=== PATIENT | male | born 1960 | race Caucasian/White ===

== ENCOUNTER 2017-04-19 14:26 | Emergency (ER) | payer BC ==
[2017-04-19 14:47] VITALS: BP 145/112
[2017-04-19] MEDS ORDERED: Metoclopramide 10 MG/2 ML SDV IVPUSH ONE (15:06)
--- NOTE | 2017-04-19 15:10 | EDM.PDOC ---
<George Mendiola - Last Filed: 04/19/17 20:56> ED HPI GENERAL MEDICAL PROBLEM - General Chief Complaint: Gastrointestinal Problem Stated Complaint: DIARHEA,DEHYDRATED Time Seen by Provider: 04/19/17 15:06 - Related Data Allergies Allergy/AdvReac Type Severity Reaction Status Date / Time Penicillins Allergy Rash Verified 04/19/17 14:46 Home Meds: Home Meds Albuterol Sulfate [Proair Hfa] 1 puff INH ASDIRECTED PRN 04/27/16 [History] Famotidine 40 mg PO DAILY 04/27/16 [History] Fenofibrate 160 mg PO DAILY 04/27/16 [History] Lisinopril 20 mg PO DAILY 04/27/16 [History] Omeprazole 20 mg PO DAILY 04/27/16 [History] Ondansetron [Zofran] 4 mg BUCCAL Q6H PRN #8 tab 04/19/17 [Rx] Course - Vital Signs Last Recorded V/S: Last Vital Signs Temp 36.3 C 04/19/17 14:43 Pulse 115 H 04/19/17 14:43 Resp 20 04/19/17 14:43 BP 145/112 H 04/19/17 14:43 Pulse Ox 97 04/19/17 14:43 Orthostatic Blood Pressure [ 128/101 Standing] Orthostatic Blood Pressure [ 149/99 Supine] - Orders/Labs/Meds Orders: Active Orders 24 hr Category Date Time Status Orthostatic Vital Signs [RC] STAT Care 04/19/17 20:45 Active Labs: Laboratory Tests 04/19/17 04/19/17 04/19/17 Range/Units 15:40 15:40 15:40 WBC 22.12 H (4.23-9.07) K/mm3 RBC 6.71 H (4.63-6.08) M/mm3 Hgb 19.9 H (13.7-17.5) gm/L Hct 57.0 H (40.1-51.0) % MCV 84.9 (79.0-92.2) fl MCH 29.7 (25.7-32.2) pg MCHC 34.9 (32.2-35.5) g/dl RDW Std Deviation 46.8 H (35.1-43.9) fL Plt Count 433 H (163-337) K/mm3 MPV 9.4 (9.4-12.3) fl Neutrophils % (Manual) 85 H (40-60) % Band Neutrophils % 0 (0-10) % Lymphocytes % (Manual) 12 L (20-40) % Atypical Lymphs % 0 % Monocytes % (Manual) 3 (2-10) % Eosinophils % (Manual) 0 L (0.8-7.0) % Basophils % (Manual) 0 L (0.2-1.2) Platelet Estimate Adequate Plt Morphology Comment Normal RBC Morph Comment Normal Sodium 139 (136-145) mEq/L Potassium 4.5 (3.5-5.1) mEq/L Chloride 102 (98-107) mEq/L Carbon Dioxide 22 (21-32) mEq/L Anion Gap 19.5 H (5-15) BUN 20 H (7-18) mg/dL Creatinine 1.4 H (0.7-1.3) mg/dL Est Cr Clr Drug Dosing 65.44 mL/min Estimated GFR (MDRD) 53 (>60) mL/min BUN/Creatinine Ratio 14.3 (14-18) Glucose 137 H (74-106) mg/dL Serum Osmolality 297 (280-300) mosm/kg Calcium 9.4 (8.5-10.1) mg/dL Magnesium 1.9 (1.8-2.4) mg/dl Total Bilirubin 0.7 (0.2-1.0) mg/dL AST 24 (15-37) U/L ALT 48 (16-63) U/L Alkaline Phosphatase 66 (46-116) U/L Total Protein 8.5 H (6.4-8.2) g/dl Albumin 4.3 (3.4-5.0) g/dl Globulin 4.2 gm/dL Albumin/Globulin Ratio 1.0 (1-2) Ketones (0.0-0.3) mM /18/17 Range/Units 15:40 WBC (4.23-9.07) K/mm3 RBC (4.63-6.08) M/mm3 Hgb (13.7-17.5) gm/L Hct (40.1-51.0) % MCV (79.0-92.2) fl MCH (25.7-32.2) pg MCHC (32.2-35.5) g/dl RDW Std Deviation (35.1-43.9) fL Plt Count (163-337) K/mm3 MPV (9.4-12.3) fl Neutrophils % (Manual) (40-60) % Band Neutrophils % (0-10) % Lymphocytes % (Manual) (20-40) % Atypical Lymphs % % Monocytes % (Manual) (2-10) % Eosinophils % (Manual) (0.8-7.0) % Basophils % (Manual) (0.2-1.2) Platelet Estimate Plt Morphology Comment RBC Morph Comment Sodium (136-145) mEq/L Potassium (3.5-5.1) mEq/L Chloride (98-107) mEq/L Carbon Dioxide (21-32) mEq/L Anion Gap (5-15) BUN (7-18) mg/dL Creatinine (0.7-1.3) mg/dL Est Cr Clr Drug Dosing mL/min Estimated GFR (MDRD) (>60) mL/min BUN/Creatinine Ratio (14-18) Glucose (74-106) mg/dL Serum Osmolality (280-300) mosm/kg Calcium (8.5-10.1) mg/dL Magnesium (1.8-2.4) mg/dl Total Bilirubin (0.2-1.0) mg/dL AST (15-37) U/L ALT (16-63) U/L Alkaline Phosphatase (46-116) U/L Total Protein (6.4-8.2) g/dl Albumin (3.4-5.0) g/dl Globulin gm/dL Albumin/Globulin Ratio (1-2) Ketones 0.25 (0.0-0.3) mM Meds: Medications Discontinued Medications Generic Name Dose Route Start Last Admin Trade Name Freq PRN Reason Stop Dose Admin Hydromorphone HCl 0.5 mg 04/19/17 19:21 04/19/17 19:27 Dilaudid IVPUSH 04/19/17 19:22 0.5 mg ONETIME ONE Administration Dextrose/Sodium Chloride 1,000 mls @ 999 mls/hr 04/19/17 15:15 04/19/17 15:44 Dextrose 5%-Normal Saline IV 999 mls/hr ASDIRECTED MICHAEL Administration Dextrose/Sodium Chloride 1,000 mls @ 999 mls/hr 04/19/17 18:30 04/19/17 18:36 Dextrose 5%-Normal Saline IV 999 mls/hr ASDIRECTED MICHAEL Administration Lactated Ringer's 1,000 mls @ 999 mls/hr 04/19/17 19:11 04/19/17 19:40 Ringers, Lactated IV 04/19/17 20:11 999 mls/hr .BOLUS ONE Administration Ketorolac Tromethamine 30 mg 04/19/17 15:15 04/19/17 15:45 Toradol IVPUSH 30 mg ONETIME MICHAEL Administration Metoclopramide HCl 10 mg 04/19/17 15:06 04/19/17 15:44 Reglan IVPUSH 04/19/17 15:07 10 mg ONETIME ONE Administration - Re-Assessments/Exams Free Text/Narrative Re-Assessment/Exam: 04/19/17 20:[address] Colunga, and care of the patient assumed. Following 3 L of IV fluid, I have the nurse check his orthostatics. The patient is slightly orthostatic, however, he appears to be comfortable, and I am comfortable discharging him home. Dr. Colunga wrote a prescription for Zofran, and I am recommending that he drink plenty of Gatorade or Powerade. He is instructed that should he have difficulty keeping the Gatorade down, or his diarrhea is uncontrollable, that he is to return to the ER. He is agreeable. Departure - Departure Time of Disposition: 20:58 Disposition: Home, Self-Care 01 Clinical Impression: Severe dehydration, Gastroenteritis - Discharge Information Prescriptions: Ondansetron [Zofran] 4 mg BUCCAL Q6H PRN #8 tab PRN Reason: nausea or vomiting Instructions: Viral Gastroenteritis, Adult, [id number], Dehydration, Adult, [id number] Referrals: Sparkle Schmidt MD [Primary Care Provider] - Forms: ED Department Discharge Additional Instructions: Evaluation in the emergency room today due to acute onset of nausea vomiting and diarrhea. As you discussed with us this is a sporadic event every 6-12 weeks where he will have a similar event of spontaneous nausea vomiting and diarrhea and then is to be better within appear to 6 hours. This suggests either a severe dumping syndrome or further GI abnormalities. I would suggest having lab tests and investigations carried out to rule out porphyria. This is a hereditary disorder that can cause sudden onset of severe abdominal pain that can precipitate nausea vomiting and sometimes diarrhea. I would suggest follow- up with a new car inspector as well as this is a very atypical story of recurrent bouts of nausea vomiting diarrhea and abdominal pain. Today's event was particular severe from the point of view of the dehydration. Her hemoglobin was 19.9 and hematocrit of 57 which means that there was hardly any fluid left in your blood for your cells to float in. This is potentially a danger situation because the blood will be more amenable to clotting and thus putting you at risk of stroke and/or heart attack. You're treated with 3 L of IV fluid while in the ED to rehydrate you. I wrote a prescription for Zofran which is an anti-at emetic or medicine made to help stop vomiting thick and going to your tongue every 4 hours if needed in the future. Perhaps this may stop the vomiting and allow you to continue clear fluids such as Gatorade or preop Powerade prevent such a similar event of dehydration. <Yohan Colunga - Last Filed: 04/20/17 10:25> ED HPI GENERAL MEDICAL PROBLEM - General Source of Information: Reports: Patient History Limitations: Reports: No Limitations - History of Present Illness INITIAL COMMENTS - FREE TEXT/NARRATIVE: 56-year-old male attends the ED with acute onset of abdominal pain with associated nausea and vomiting and diarrhea. He states he eats. Cc episodes about once every 6 weeks to 3 months. Usually can hear his stomach started gurgle and make loud noises in the evening and this often precipitates nausea vomiting and diarrhea. States he usually last a little 3 in the morning or about 6 hours and then he's better. Today he couldn't stop vomiting and therefore elected to come to the ED. Emesis is all bilious without any blood. His abdominal musculature is quite sore from throwing up so much. Stools are loose and watery. He has recurrent problems like this either due to a dumping syndrome-like illness or porphyria should be on the differential. Requires further workup in this regard. Today he feels very lightheaded dizzy and weak and therefore elected to come to hospital for IV fluids. Onset: Sudden Onset Date: 04/18/17 Onset Time: 21:00 Duration: Hour(s): Location: Reports: Abdomen (Vomiting and diarrhea.) Quality: Reports: Burning, Other (Some burning in his epigastrium abdominal discomfort from vomiting so much mostly muscular in origin.) Severity: Moderate Improves with: Reports: None Worsens with: Reports: None Context: Denies: Activity, Exercise, Lifting, Sick Contact, Trauma Associated Symptoms: Reports: Malaise, Other (Feels lightheaded weak and dizzy.) Treatments WEB SIZER: Reports: Other (see below) Upper Abdomen Pain Score (Numeric/FACES): 8 Past Medical History HEENT History: Reports: Impaired Vision Other HEENT History: wears corrective lenses Cardiovascular History: Reports: High Cholesterol, Hypertension, Other (See Below) Other Cardiovascular History: elevated triglycerides Respiratory History: Reports: Asthma Gastrointestinal History: Reports: Colon Polyp, Gastritis, GERD Musculoskeletal History: Reports: Arthritis, Back Pain, Chronic - Past Surgical History HEENT Surgical History: Reports: Other (See Below) Other HEENT Surgeries/Procedures: facial surgery Cardiovascular Surgical History: Reports: None Respiratory Surgical History: Reports: None GI Surgical History: Reports: Hernia Repair/Other Social & Family History - Tobacco Use Smoking Status *Q: Never Smoker Second Hand Smoke Exposure: No - Caffeine Use Caffeine Use: Reports: Coffee - Recreational Drug Use Recreational Drug Use: No Drug Use in Last 12 Months: No - Living Situation & Occupation Living situation: Reports: , with Spouse Occupation: Employed ED ROS GENERAL - Review of Systems Review Of Systems: See Below Constitutional: Reports: Malaise, Weakness, Fatigue, Decreased Appetite. Denies : Fever, Chills, Weight Loss (Not sleeping all night) HEENT: Reports: No Symptoms Respiratory: Reports: No Symptoms Cardiovascular: Reports: No Symptoms Endocrine: Reports: Fatigue GI/Abdominal: Reports: Abdominal Pain (Especially upper abdominal pain he feels muscular from vomiting so much.), Diarrhea (See history of present illness), Decreased Appetite, Nausea, Vomiting. Denies: Difficulty Swallowing, Hematemesis, Hematochezia : Reports: No Symptoms Musculoskeletal: Reports: No Symptoms Skin: Reports: No Symptoms Neurological: Reports: No Symptoms Psychiatric: Reports: No Symptoms Hematologic/Lymphatic: Reports: No Symptoms Immunologic: Reports: No Symptoms ED EXAM, GI/ABD - Physical Exam Exam: See Below Exam Limited By: No Limitations General Appearance: Alert, WD/WN, No Apparent Distress Eyes: Bilateral: Normal Appearance (No jaundice.) Throat/Mouth: Normal Inspection, Normal Oropharynx, Other (Tongue is very dry and coated and greenish in color.) Head: Atraumatic, Normocephalic Neck: Normal Inspection, Supple, Non-Tender, Full Range of Motion. No: Lymphadenopathy (L), Lymphadenopathy (R) Respiratory/Chest: No Respiratory Distress, Lungs Clear, Normal Breath Sounds, No Accessory Muscle Use, Chest Non-Tender Cardiovascular: Normal Peripheral Pulses, Regular Rate, Rhythm, No Edema, No JVD , No Murmur GI/Abdominal Exam: Normal Bowel Sounds, Soft, Non-Tender, No Organomegaly, No Distention, No Abnormal Bruit, No Mass, Pelvis Stable Back Exam: Normal Inspection, Full Range of Motion. No: CVA Tenderness (L), CVA Tenderness (R) Extremities: Normal Inspection, Normal Range of Motion, Non-Tender, No Pedal Edema Neurological: Alert, Oriented, CN II-XII Intact, Normal Cognition, Normal Reflexes Psychiatric: Normal Affect, Normal Mood Skin Exam: Warm, Dry, Intact, Normal Color, No Rash Course - Orders/Labs/Meds Orders: Active Orders 24 hr Category Date Time Status Orthostatic Vital Signs [RC] STAT Care 04/19/17 20:45 Active Labs: Laboratory Tests 04/19/17 04/19/17 04/19/17 Range/Units 15:40 15:40 15:40 WBC 22.12 H (4.23-9.07) K/mm3 RBC 6.71 H (4.63-6.08) M/mm3 Hgb 19.9 H (13.7-17.5) gm/L Hct 57.0 H (40.1-51.0) % MCV 84.9 (79.0-92.2) fl MCH 29.7 (25.7-32.2) pg MCHC 34.9 (32.2-35.5) g/dl RDW Std Deviation 46.8 H (35.1-43.9) fL Plt Count 433 H (163-337) K/mm3 MPV 9.4 (9.4-12.3) fl Neutrophils % (Manual) 85 H (40-60) % Band Neutrophils % 0 (0-10) % Lymphocytes % (Manual) 12 L (20-40) % Atypical Lymphs % 0 % Monocytes % (Manual) 3 (2-10) % Eosinophils % (Manual) 0 L (0.8-7.0) % Basophils % (Manual) 0 L (0.2-1.2) Platelet Estimate Adequate Plt Morphology Comment Normal RBC Morph Comment Normal Sodium 139 (136-145) mEq/L Potassium 4.5 (3.5-5.1) mEq/L Chloride 102 (98-107) mEq/L Carbon Dioxide 22 (21-32) mEq/L Anion Gap 19.5 H (5-15) BUN 20 H (7-18) mg/dL Creatinine 1.4 H (0.7-1.3) mg/dL Est Cr Clr Drug Dosing 65.44 mL/min Estimated GFR (MDRD) 53 (>60) mL/min BUN/Creatinine Ratio 14.3 (14-18) Glucose 137 H (74-106) mg/dL Serum Osmolality 297 (280-300) mosm/kg Calcium 9.4 (8.5-10.1) mg/dL Magnesium 1.9 (1.8-2.4) mg/dl Total Bilirubin 0.7 (0.2-1.0) mg/dL AST 24 (15-37) U/L ALT 48 (16-63) U/L Alkaline Phosphatase 66 (46-116) U/L Total Protein 8.5 H (6.4-8.2) g/dl Albumin 4.3 (3.4-5.0) g/dl Globulin 4.2 gm/dL Albumin/Globulin Ratio 1.0 (1-2) Ketones (0.0-0.3) mM 07/18/17 Range/Units 15:40 WBC (4.23-9.07) K/mm3 RBC (4.63-6.08) M/mm3 Hgb (13.7-17.5) gm/L Hct (40.1-51.0) % MCV (79.0-92.2) fl MCH (25.7-32.2) pg MCHC (32.2-35.5) g/dl RDW Std Deviation (35.1-43.9) fL Plt Count (163-337) K/mm3 MPV (9.4-12.3) fl Neutrophils % (Manual) (40-60) % Band Neutrophils % (0-10) % Lymphocytes % (Manual) (20-40) % Atypical Lymphs % % Monocytes % (Manual) (2-10) % Eosinophils % (Manual) (0.8-7.0) % Basophils % (Manual) (0.2-1.2) Platelet Estimate Plt Morphology Comment RBC Morph Comment Sodium (136-145) mEq/L Potassium (3.5-5.1) mEq/L Chloride (98-107) mEq/L Carbon Dioxide (21-32) mEq/L Anion Gap (5-15) BUN (7-18) mg/dL Creatinine (0.7-1.3) mg/dL Est Cr Clr Drug Dosing mL/min Estimated GFR (MDRD) (>60) mL/min BUN/Creatinine Ratio (14-18) Glucose (74-106) mg/dL Serum Osmolality (280-300) mosm/kg Calcium (8.5-10.1) mg/dL Magnesium (1.8-2.4) mg/dl Total Bilirubin (0.2-1.0) mg/dL AST (15-37) U/L ALT (16-63) U/L Alkaline Phosphatase (46-116) U/L Total Protein (6.4-8.2) g/dl Albumin (3.4-5.0) g/dl Globulin gm/dL Albumin/Globulin Ratio (1-2) Ketones 0.25 (0.0-0.3) mM Meds: Medications Discontinued Medications Generic Name Dose Route Start Last Admin Trade Name Freq PRN Reason Stop Dose Admin Hydromorphone HCl 0.5 mg 04/19/17 19:21 04/19/17 19:27 Dilaudid IVPUSH 04/19/17 19:22 0.5 mg ONETIME ONE Administration Dextrose/Sodium Chloride 1,000 mls @ 999 mls/hr 04/19/17 15:15 04/19/17 15:44 Dextrose 5%-Normal Saline IV 999 mls/hr ASDIRECTED MICHAEL Administration Dextrose/Sodium Chloride 1,000 mls @ 999 mls/hr 04/19/17 18:30 04/19/17 18:36 Dextrose 5%-Normal Saline IV 999 mls/hr ASDIRECTED MICHAEL Administration Lactated Ringer's 1,000 mls @ 999 mls/hr 04/19/17 19:11 04/19/17 19:40 Ringers, Lactated IV 04/19/17 20:11 999 mls/hr .BOLUS ONE Administration Ketorolac Tromethamine 30 mg 04/19/17 15:15 04/19/17 15:45 Toradol IVPUSH 30 mg ONETIME MICHAEL Administration Metoclopramide HCl 10 mg 04/19/17 15:06 04/19/17 15:44 Reglan IVPUSH 04/19/17 15:07 10 mg ONETIME ONE Administration - Radiology Interpretation Free Text/Narrative:: 56-year-old male presents to the ED with an acute bout of nausea vomiting and diarrhea. Reports he gets this every 6-12 weeks. Comes on sporadically where he will have sudden onset of abdominal pain with gurgling and growling and then nausea vomiting and diarrhea. Usually symptoms dissipate over a period of 6 hours. Today he still nauseated and has not been able to keep down any fluids and therefore his become volume depleted. Symptoms started about 2100 hrs. last night. Agree these events occur in the evening and into the wee hours of the morning and then get better. The recurrence is what bothers me. It's questionable whether he is a dumping-like syndrome or porphyria needs to be considered in the differential diagnosis. GI consultation would likely be in order. Today he does appear to be mildly volume depleted. Plan will be to give him a liter of D5 normal saline at open. Given Reglan 10 mg IV for nausea relief and Toradol 30 mg IV for pain relief. Routine labs will be collected. - Re-Assessments/Exams Free Text/Narrative Re-Assessment/Exam: 04/19/17 18:21 labs are back revealing a markedly elevated white blood cell count at 22.12 with 85% neutrophils and no bands. Hemoglobin is markedly elevated at 19.9 hematocrit is 57 indicating severe volume depletion. Reticulocyte count is also elevated at 433,000. Chemistry shows a sodium of 139 potassium 4.5. Port 102 bicarbonate 22. B1 is 20 creatinine is 1.4. Glucose 137. Therefore appears that he likely is ketotic from not being able to metabolize any carbohydrates. He will require at least 3 L of fluid to reduce his severe hemoconcentration. He feels fine at this time even after 1 L with no further nausea. He will require at least another 2 L of IV fluids. Ordered second liter of D5 normal saline at open. 04/19/17 19:14 ordered third liter of IV fluid which will be Ringer's lactate at open. Will be discharged to home after this. I will advise follow-up with his personal physician particularly to have things checked in terms of ruling out porphyria etc. I also send him home with Zofran 4 mg sublingually that he can take if he develops acute episode of nausea and vomiting in the future. Departure - Departure Condition: Fair
[2017-04-19] MEDS ORDERED: Ketorolac 30 MG/ML SDV IVPUSH SCH (15:15)
[2017-04-19] MEDS ORDERED: Dextrose 5%-0.9% NaCl 1,000 ML IV SCH ×2 (15:15→18:30)
[2017-04-19] MEDS ORDERED: Lactated Ringers 1,000 ML IV ONE (19:11)
[2017-04-19] MEDS ORDERED: HYDROmorphone 0.5 MG/0.5 ML Syringe IVPUSH ONE (19:21)
== END 2017-04-19 21:00 | disposition home or self-care (01) ==
LOC: JD.ED 14:26
DX: K52.9 Noninfective gastroenteritis and colitis, unspecified (principal); E86.0 Dehydration; E78.00 Pure hypercholesterolemia, unspecified; I10 Essential (primary) hypertension; J45.909 Unspecified asthma, uncomplicated; K21.9 Gastro-esophageal reflux disease without esophagitis; Z88.0 Allergy status to penicillin; Z98.890 Other specified postprocedural states; Z79.899 Other long term (current) drug therapy
CPT/HCPCS: 36415; 80053; 82009; 83735; 83930; 85025; 96361; 96374; 96375; 99284; J1170; J1885; J2765; J7042; J7120

== ENCOUNTER 2017-09-29 13:57 | Observation (INO) | payer BC ==
[2017-09-29] MEDS ORDERED: Sodium Chloride 0.9% 1,000 ML IV STA (14:19)
[2017-09-29] MEDS ORDERED: Ondansetron 4 MG/2 ML SDV IVPUSH ONE (14:19)
[2017-09-29] MEDS ORDERED: methylPREDNISolone Sodium Succinate 125 MG/2 ML SDV IM ONE (14:24)
[2017-09-29] MEDS ORDERED: Famotidine 20 MG/2 ML SDV IVPUSH ONE (14:25)
[2017-09-29] MEDS ORDERED: HYDROmorphone 1 MG/ML Syringe IVPUSH ONE (14:25)
[2017-09-29] MEDS ORDERED: diphenhydrAMINE 50 MG/ML SDV IVPUSH ONE (14:25)
--- NOTE | 2017-09-29 15:50 | PCM.SN ---
- Free Text/Narrative Note: Start: 1530 Stop: 1545 IV start times two attempts, with 20 gauge to right inner wrist noted and flushed with 20ml's of normal saline.
[2017-09-29] MEDS: Sodium Chloride 0.9% 10 ML Syringe FLUSH PRN (15:55)
--- NOTE | 2017-09-29 15:55 | EDM.PDOC ---
ED HPI GENERAL MEDICAL PROBLEM - General Chief Complaint: Abdominal Pain Stated Complaint: VOMITING/CHEST PAIN Time Seen by Provider: 09/29/17 14:11 Source of Information: Reports: Patient History Limitations: Reports: No Limitations - History of Present Illness INITIAL COMMENTS - FREE TEXT/NARRATIVE: The patient presents with abdominal pain, nausea, vomiting, diarrhea, chest pain that radiates to his back. He says he has some undiagnosed GI problem where he will get these symptoms. He has been to the GI specialist and they did not find a cause yet. This started today. He had a couple episodes in the past couple weeks. He has not identified triggers. He has not been around anyone who is sick. He has not eaten any bad food. He did get some chest pain whit it and that is new. He also developed a rash today. He has never had this happen before. He is not on any new medications and he has no new soaps, lotions or detergents. Onset: Gradual Duration: Hour(s): Location: Reports: Chest, Abdomen Quality: Reports: Sharp Severity: Moderate Improves with: Reports: None Worsens with: Reports: None Associated Symptoms: Reports: Chest Pain. Denies: Cough, Fever/Chills, Headaches, Nausea/Vomiting, Shortness of Breath Treatments MEETING COORDINATOR: Reports: Acetaminophen Abdominal Pain Score (Numeric/FACES): 6 Chest Pain Score (Numeric/FACES): 3 - Related Data Allergies Allergy/AdvReac Type Severity Reaction Status Date / Time Penicillins Allergy Rash Verified 09/29/17 14:03 Home Meds: Home Meds Albuterol Sulfate [Proair Hfa] 1 puff INH ASDIRECTED PRN 04/27/16 [History] Famotidine 40 mg PO DAILY 04/27/16 [History] Fenofibrate 160 mg PO DAILY 04/27/16 [History] Lisinopril 20 mg PO DAILY 04/27/16 [History] Omeprazole 20 mg PO DAILY 04/27/16 [History] Ondansetron [Zofran] 4 mg BUCCAL Q6H PRN #8 tab 04/19/17 [Rx] Past Medical History HEENT History: Reports: Impaired Vision Other HEENT History: wears corrective lenses Cardiovascular History: Reports: High Cholesterol, Hypertension, Other (See Below) Other Cardiovascular History: elevated triglycerides Respiratory History: Reports: Asthma Gastrointestinal History: Reports: Colon Polyp, Gastritis, GERD Musculoskeletal History: Reports: Arthritis, Back Pain, Chronic - Past Surgical History HEENT Surgical History: Reports: Other (See Below) Other HEENT Surgeries/Procedures: facial surgery Cardiovascular Surgical History: Reports: None Respiratory Surgical History: Reports: None GI Surgical History: Reports: Hernia Repair/Other Social & Family History - Family History Family Medical History: Noncontributory - Tobacco Use Smoking Status *Q: Unknown Ever Smoked Second Hand Smoke Exposure: No - Caffeine Use Caffeine Use: Reports: Coffee - Recreational Drug Use Recreational Drug Use: No Drug Use in Last 12 Months: No - Living Situation & Occupation Living situation: Reports: , with Spouse Occupation: Employed ED ROS GENERAL - Review of Systems Review Of Systems: See Below Constitutional: Reports: No Symptoms HEENT: Reports: No Symptoms Respiratory: Reports: No Symptoms Cardiovascular: Reports: Chest Pain Endocrine: Reports: No Symptoms GI/Abdominal: Reports: Abdominal Pain, Diarrhea, Nausea, Vomiting : Reports: No Symptoms Musculoskeletal: Reports: No Symptoms Skin: Reports: Rash Neurological: Reports: No Symptoms ED EXAM, GI/ABD - Physical Exam Exam: See Below Exam Limited By: No Limitations General Appearance: Alert, No Apparent Distress Ears: Normal External Exam Nose: Normal Inspection Head: Atraumatic, Normocephalic Neck: Normal Inspection Respiratory/Chest: No Respiratory Distress, Lungs Clear, Normal Breath Sounds Cardiovascular: Regular Rate, Rhythm, No Edema, No Murmur GI/Abdominal Exam: Soft, Non-Tender, No Organomegaly, No Mass Back Exam: Normal Inspection Extremities: Normal Inspection Neurological: Alert, Oriented, No Motor/Sensory Deficits Skin Exam: Rash (Generalized urticaria with dermatographia on his chest and abdomen) Course - Vital Signs Last Recorded V/S: Last Vital Signs Temp 98.5 F 09/29/17 14:04 Pulse 96 09/29/17 17:31 Resp 18 09/29/17 17:31 BP 160/105 H 09/29/17 17:31 Pulse Ox 96 09/29/17 17:31 - Orders/Labs/Meds Orders: Active Orders 24 hr Category Date Time Status EKG Documentation Completion [RC] ASDIRECTED Care 09/29/17 14:14 Active Peripheral IV Care [RC] . DIRECTED Care 09/29/17 14:20 Active Abdomen Ltd [US] Stat Exams 12/28/17 17:19 Taken Abdomen Series w Chest 1V [CR] Stat Exams 09/29/17 14:19 Taken Sodium Chloride 0.9% [Saline Flush] Med 09/29/17 14:19 Active 10 ml FLUSH ASDIRECTED PRN ED Antiemetic Medication Reflex [OM.PC] Stat Oth 09/29/17 14:20 Ordered Peripheral IV Insertion Adult [OM.PC] Stat Oth 09/29/17 14:19 Ordered EKG 12 Lead [EK] Stat Ther 09/29/17 14:14 Ordered Medication Orders Sodium Chloride (Saline Flush) 10 ml FLUSH ASDIRECTED PRN PRN Reason: Keep Vein Open Last Admin: 09/29/17 15:55 Dose: 10 ml Labs: Laboratory Tests 09/29/17 09/29/17 09/29/17 Range/Units 16:00 16:00 16:20 WBC 14.75 H (4.23-9.07) K/mm3 RBC 6.01 (4.63-6.08) M/mm3 Hgb 17.8 H (13.7-17.5) gm/L Hct 50.3 (40.1-51.0) % MCV 83.7 (79.0-92.2) fl MCH 29.6 (25.7-32.2) pg MCHC 35.4 (32.2-35.5) g/dl RDW Std Deviation 43.4 (35.1-43.9) fL Plt Count 342 H (163-337) K/mm3 MPV 8.9 L (9.4-12.3) fl Neut % (Auto) 78.2 H (34.0-67.9) % Lymph % (Auto) 14.9 L (21.8-53.1) % [place] % (Auto) 5.2 L (5.3-12.2) % Eos % (Auto) 1.4 (0.8-7.0) Baso % (Auto) 0.1 (0.1-1.2) % Neut # (Auto) 11.53 H (1.78-5.38) K/mm3 Lymph # (Auto) 2.20 (1.32-3.57) K/mm3 [place] # (Auto) 0.77 (0.30-0.82) K/mm3 Eos # (Auto) 0.21 (0.04-0.54) K/mm3 Baso # (Auto) 0.01 (0.01-0.08) K/mm3 Manual Slide Review Normal smear Sodium 141 (136-145) mEq/L Potassium 4.0 (3.5-5.1) mEq/L Chloride 106 (98-107) mEq/L Carbon Dioxide 22 (21-32) mEq/L Anion Gap 17.0 H (5-15) BUN 14 (7-18) mg/dL Creatinine 1.0 (0.7-1.3) mg/dL Est Cr Clr Drug Dosing 90.53 mL/min Estimated GFR (MDRD) > 60 (>60) mL/min BUN/Creatinine Ratio 14.0 (14-18) Glucose 127 H (74-106) mg/dL Calcium 8.7 (8.5-10.1) mg/dL Total Bilirubin 0.5 (0.2-1.0) mg/dL AST 23 (15-37) U/L ALT 45 (16-63) U/L Alkaline Phosphatase 64 (46-116) U/L Troponin I < 0.017 (0.00-0.056) ng/mL Total Protein 7.8 (6.4-8.2) g/dl Albumin 3.7 (3.4-5.0) g/dl Globulin 4.1 gm/dL Albumin/Globulin Ratio 0.9 L (1-2) Lipase 836 H (73-393) U/L Urine Color Yellow (Yellow) Urine Appearance Clear (Clear) Urine pH 5.5 (5.0-8.0) Ur Specific [place] 1.025 (1.005-1.030) Urine Protein Negative (Negative) Urine Glucose (UA) Negative (Negative) Urine Ketones Negative (Negative) Urine Occult Blood Negative (Negative) Urine Nitrite Negative (Negative) Urine Bilirubin Negative (Negative) Urine Urobilinogen 0.2 (0.2-1.0) Ur Leukocyte Esterase Negative (Negative) Urine RBC Not seen (0-5) /hpf Urine WBC 0-5 (0-5) /hpf Ur Epithelial Cells Not seen (0-5) /hpf Urine Bacteria Few (FEW) /hpf Hyaline Casts 0-5 (0-5) /lpf Urine Mucus Moderate H (FEW) /hpf Meds: Medications Generic Name Dose Route Start Last Admin Trade Name Freq PRN Reason Stop Dose Admin Sodium Chloride 10 ml 09/29/17 14:19 09/29/17 15:55 Saline Flush FLUSH 10 ml ASDIRECTED PRN Administration Keep Vein Open Discontinued Medications Generic Name Dose Route Start Last Admin Trade Name Ositoq PRN Reason Stop Dose Admin Diphenhydramine HCl 50 mg 09/29/17 14:25 09/29/17 15:54 Benadryl IVPUSH 09/29/17 14:26 50 mg ONETIME ONE Administration Famotidine 20 mg 09/29/17 14:25 09/29/17 15:54 Pepcid IVPUSH 09/29/17 14:26 20 mg ONETIME ONE Administration Hydromorphone HCl 1 mg 09/29/17 14:25 09/29/17 15:54 Dilaudid IVPUSH 09/29/17 14:26 1 mg ONETIME ONE Administration Hydromorphone HCl 0.5 mg 09/29/17 17:18 09/29/17 17:26 Dilaudid IVPUSH 09/29/17 17:19 0.5 mg ONETIME ONE Administration Sodium Chloride 1,000 mls @ 1,000 mls/hr 09/29/17 14:19 09/29/17 15:55 Normal Saline IV 09/29/17 15:18 1,000 mls/hr .BOLUS STA Administration Methylprednisolone Sodium Succinate 125 mg 09/29/17 14:24 09/29/17 15:53 Solu-Medrol IM 09/29/17 14:25 125 mg ONETIME ONE Administration Ondansetron HCl 4 mg 09/29/17 14:19 09/29/17 15:54 Zofran IVPUSH 09/29/17 14:20 4 mg ONETIME ONE Administration - Re-Assessments/Exams Free Text/Narrative Re-Assessment/Exam: 09/29/17 16:02 I ordered an IV NS 1L bolus, zofran 4mg IV, dilaudid 1mg IV, benadryl 50mg IV, pepcid 20gm IV, solu-medrol 125mg IV, EKG, abdominal series x-ray with upright chest and UA. They had some trouble getting an IV so Tia our [employer] came to start an IV. 09/29/17 18:07 The WBC was elevated at 14.75. His anion gap was elevated at 17. His glucose was elevated at 127. His troponin was negative. His EKG shows a sinus tachycardia with no acute changes. His abdominal x-ray shows no free air and no air fluid levels or dilated loops of bowel. His lipase was elevated at 836. He has never had pancreatitis before. He does not drink. His UA shows no UTI. He still has some pain so I ordered dilaudid 0.5mg IV. I will get an US of his gallbladder. 09/29/17 18:35 The US shows no gallstones. It was hard to see the gallbladder with all the gas present. 09/29/17 18:[address] Pedraza and he agreed to the admission. Departure - Departure Time of Disposition: 18:40 Disposition: Refer to Observation Clinical Impression: Urticaria Pancreatitis Qualifiers: Chronicity: acute Pancreatitis type: other Acute pancreatitis complication: no infection or necrosis Qualified Code(s): K85.80 - Other acute pancreatitis without necrosis or infection - Discharge Information Referrals: Sparkle Schmidt MD [Primary Care Provider] - Forms: ED Department Discharge - My Orders Last 24 Hours: My Active Orders 09/29/17 14:14 EKG Documentation Completion [RC] ASDIRECTED EKG 12 Lead [EK] Stat 09/29/17 14:19 Abdomen Series w Chest 1V [CR] Stat Sodium Chloride 0.9% [Saline Flush] 10 ml FLUSH ASDIRECTED PRN Peripheral IV Insertion Adult [OM.PC] Stat 09/29/17 14:20 Peripheral IV Care [RC] . DIRECTED ED Antiemetic Medication Reflex [OM.PC] Stat 09/29/17 17:19 Abdomen Ltd [US] Stat - Assessment/Plan Last 24 Hours: My Active Orders 09/29/17 14:14 EKG Documentation Completion [RC] ASDIRECTED EKG 12 Lead [EK] Stat 09/29/17 14:19 Abdomen Series w Chest 1V [CR] Stat Sodium Chloride 0.9% [Saline Flush] 10 ml FLUSH ASDIRECTED PRN Peripheral IV Insertion Adult [OM.PC] Stat 09/29/17 14:20 Peripheral IV Care [RC] . DIRECTED ED Antiemetic Medication Reflex [OM.PC] Stat 09/29/17 17:19 Abdomen Ltd [US] Stat
[2017-09-29] MEDS ORDERED: HYDROmorphone 0.5 MG/0.5 ML Syringe IVPUSH ONE (17:18)
[2017-09-29] MEDS ORDERED: Sodium Chloride 0.9% 1,000 ML IV SCH (18:45)
[2017-09-29] MEDS ORDERED: Albuterol/Ipratropium 3.0-0.5 MG/3 ML Neb Soln NEB PRN (19:09)
[2017-09-29] MEDS ORDERED: Polyethylene Glycol 3350 Powder 17 GM Packet PO PRN (19:09)
[2017-09-29] MEDS ORDERED: Temazepam 15 MG Cap PO PRN (19:09)
[2017-09-29] MEDS ORDERED: LORazepam 2 MG/ML MDV IV PRN (19:09)
[2017-09-29] MEDS ORDERED: oxyCODONE 5 MG Tab PO PRN (19:09)
[2017-09-29] MEDS ORDERED: Ondansetron 4 MG/2 ML SDV IV PRN (19:09)
[2017-09-29] MEDS ORDERED: Docusate Sodium 100 MG Cap PO PRN (19:09)
[2017-09-29] MEDS ORDERED: Acetaminophen 325 MG Tab PO PRN (19:09)
[2017-09-29] MEDS ORDERED: Bisacodyl 5 MG Tab PO PRN (19:09)
[2017-09-29] MEDS ORDERED: Promethazine 12.5 MG in Sodium Chloride 0.9% 50 ML IV PRN (19:09)
--- NOTE | 2017-09-29 19:11 | US ---
Limited abdominal ultrasound: Multiple real-time images of the upper right abdomen are obtained. Technologist's note: Suboptimal due to bowel gas Findings: Liver not optimally seen. No gross abnormality is identified. Gallbladder shows no shadowing gallstones. No gallbladder wall thickening is seen. Common bile duct not visualized but no indirect evidence of biliary duct dilatation is seen. Right kidney not optimally seen but no discrete hydronephrosis or mass is identified. Portal vein not visualized. Pancreas not optimally seen but no gross abnormality in the area of the pancreas is identified. Impression: 1. Suboptimal study due to bowel gas. Within this limitation, no definite abnormality is identified. Diagnostic code #2
[2017-09-29] MEDS ORDERED: hydrALAZINE 20 MG/ML SDV IVPUSH PRN (19:14)
[2017-09-29] MEDS ORDERED: Metoprolol Tartrate 5 MG/5 ML SDV IVPUSH PRN (19:14)
[2017-09-29] MEDS ORDERED: Dextrose 5%-0.9% NaCl 1,000 ML IV SCH (19:15)
[2017-09-29] MEDS ORDERED: Non-Formulary Medication 1 Each (Ondansetron 4 MG) BUCCAL PRN (19:16)
[2017-09-29] MEDS ORDERED: cloNIDine 0.1 MG Tab PO ONE (19:17)
[2017-09-29] MEDS: HYDROmorphone 1 MG/ML Syringe IVPUSH PRN (20:42)
[2017-09-29] MEDS: Famotidine 20 MG Tab PO SCH (21:53)
--- NOTE | 2017-09-29 22:15 | PCM.HP ---
H&P History of Present Illness - General Date of Service: 09/29/17 Source of Information: Patient, Old Records, Provider, RN, RN Notes Reviewed History Limitations: Reports: No Limitations - History of Present Illness Initial Comments - Free Text/Narative: Yohan Webster is a 57 yo male who presents to our ED today with abdominal pain, nausea, vomiting, diarrhea, and chest pain that radiates into his back. He reports some type of undiagnosed GI problem or he gets these symptoms frequently. His been doing GI specialist and they have been unable to find the cause. This episode started today. He is unable to identify any triggers. Denies any sick contacts. Denies any new or changed food. This episode did have chest pain, and that is new. Reports a rash today, which is never happened before. He denies any new medications, lotions, soaps, or detergents. He does have generalized urticaria with dermatographia on his chest and abdomen in the ED. In the ED temperature is 98.5. Pulse 96. Respiration was 18. Blood pressure is 160/105. Pulse ox 96. Labs are obtained: The CBC is elevated at 14.75. Hemoglobin high at 17.8. Hematocrit 50.3. He is normocytic. Both are elevated at 342,000. He feels are elevated at 78.2%. Sodium was normal 141. Potassium 4.0. Chloride 106. Carbidopa accident 22. Anion gap is high at 17.0. BUN is 14. Creatinine 1.0. EGFR greater than 60. Glucose is high at 127. Calcium 8.7. Total bilirubin 0.5. Liver enzymes a good with AST at 23, ALT at 45, alkaline phosphatase at 64. Troponin is negative at less than 0.017. Protein 7.8. Albumin 3.7. Lipase is high at 836. UA is negative but does show moderate urine mucus. He was given 50 mg IV P of Benadryl for the itching. Famotidine 20 mg was given. Dilaudid was given for pain. Solu- Medrol 125 mg was also given. Zofran 4 mg was given to help with nausea. EKG was obtained and shows a sinus tachycardia with no acute changes. This is read by the ED provider. Abdominal x-ray shows no free air and no air-fluid levels or dilated loops of bowel. He does not drink alcohol. Ultrasound shows no gallstones however it is a suboptimal study due to bowel gas. No definitive abnormalities identified. A common bile duct was not visualized but there is no indirect evidence of biliary duct dilation. Portal vein is not visualized. Pancreas not well seen but no gross abnormality in the area pancreas is identified. This is interpreted by Dr. Leonard, radiologist. He carries a history of HLD, HTN, hypertriglyceridemia, asthma, colon polyps, gastritis, GERD, arthritis, chronic back pain. He subsequently admitted to the medical floor observation status. He is a full code. His PCP is Dr. Sparkle Schmidt at [facility]. Abdominal Pain Score (Numeric/FACES): 6 Chest Pain Score (Numeric/FACES): 3 - Related Data Allergies/Adverse Reactions: Allergies Allergy/AdvReac Type Severity Reaction Status Date / Time Penicillins Allergy Rash Verified 09/29/17 14:03 Home Medications: Home Meds Albuterol Sulfate [Proair Hfa] 1 puff INH ASDIRECTED PRN 04/27/16 [History] Famotidine 40 mg PO DAILY PRN 04/27/16 [History] Fenofibrate 160 mg PO DAILY 04/27/16 [History] Lisinopril 20 mg PO DAILY 04/27/16 [History] Omeprazole 20 mg PO DAILY 04/27/16 [History] Ondansetron [Zofran] 4 mg BUCCAL Q6H PRN #8 tab 04/19/17 [Rx] Past Medical History HEENT History: Reports: Impaired Vision Other HEENT History: wears corrective lenses Cardiovascular History: Reports: Hypertension, Other (See Below) Other Cardiovascular History: elevated triglycerides Respiratory History: Reports: Asthma Gastrointestinal History: Reports: Colon Polyp, Gastritis, GERD, Other (See Below) Other Gastrointestinal History: Fissure Genitourinary History: Reports: None Musculoskeletal History: Reports: Arthritis, Back Pain, Chronic Neurological History: Reports: Head Trauma Endocrine/Metabolic History: Reports: None Hematologic History: Reports: None Dermatologic History: Reports: None - Infectious Disease History Infectious Disease History: Reports: Other (See Below) Other Infectious Disease History: typhoid - Past Surgical History Head Surgeries/Procedures: Reports: Other (See Below) HEENT Surgical History: Reports: Other (See Below) Other HEENT Surgeries/Procedures: facial surgery-reconstruction Cardiovascular Surgical History: Reports: None Respiratory Surgical History: Reports: None GI Surgical History: Reports: Hernia Repair/Other Musculoskeletal Surgical History: Reports: Other (See Below) Other Musculoskeletal Surgeries/Procedures:: back nerve sx, plantar fasciatis, left broken arm, broken fingers and toes Social & Family History - Family History Family Medical History: Noncontributory Neurological: Reports: Alzheimers Disease, CVA, Dementia Other Neurological Family History: mom and dad - Tobacco Use Smoking Status *Q: Never Smoker Second Hand Smoke Exposure: No - Caffeine Use Caffeine Use: Reports: Coffee, Soda - Alcohol Use Date of Last Drink: 09/26/17 Time of Last Drink: 19:00 - Recreational Drug Use Recreational Drug Use: No Drug Use in Last 12 Months: No - Living Situation & Occupation Living situation: Reports: , with Spouse Occupation: Employed H&P Review of Systems - Review of Systems: Review Of Systems: See Below General: Reports: No Symptoms. Denies: Fever, Chills, Malaise, Weakness, Fatigue, Night Sweats, Diaphoresis, Decreased Appetite, Weight Loss, Weight Gain HEENT: Reports: No Symptoms. Denies: Contact Lenses, Dysphasia, Ear Pain, Eye Pain, Glasses, Headaches, Hearing Changes, Rhinitis, Sinus Congestion, Sore Throat, Vertigo, Visual Changes Pulmonary: Reports: No Symptoms. Denies: Shortness of Breath, Wheezing, Pleuritic Chest Pain, Cough, Sputum Cardiovascular: Reports: No Symptoms. Denies: Chest Pain, Palpitations, Dyspnea on Exertion, Edema, Lightheadedness, Syncope Gastrointestinal: Reports: Diarrhea, Nausea (resolved ), Vomiting (resolved ). Denies: Abdominal Pain, Anorexia, Black Stool, Bloody Stool, Constipation, Decreased Appetite, Difficulty Swallowing, Distension, Hematemesis, Hematochezia Genitourinary: Reports: Frequency. Denies: Dysuria, Burning, Pain, Urgency, Incontinence Musculoskeletal: Reports: Back Pain (chronic - at baseline ). Denies: Neck Pain , Shoulder Pain, Arm Pain, Hand Pain, Leg Pain Skin: Reports: No Symptoms Psychiatric: Reports: No Symptoms. Denies: Confusion, Depression, Mood Lability , Anxiety Neurological: Reports: No Symptoms. Denies: Confusion, Dizziness, Headache, Numbness, Tingling, Difficulty Walking, Weakness Hematologic/Lymphatic: Reports: No Symptoms Immunologic: Reports: No Symptoms. Denies: Anaphylaxis, Food Allergy, Environmental Allergy, Grass Allergy, Mold Allergy, Pollen Allergy Exam - Exam Exam: See Below - Vital Signs Vital Signs: Last Vital Signs Temp 98.8 F 09/29/17 20:40 Pulse 95 09/29/17 20:45 Resp 16 09/29/17 20:40 BP 135/91 H 09/29/17 20:45 Pulse Ox 94 L 09/29/17 20:45 Weight: 267 lb 8 oz - Exam Quality Assessment: DVT Prophylaxis General: Alert, Oriented, Cooperative. No: Mild Distress HEENT: Conjunctiva Clear, EACs Clear, EOMI, Hearing Intact, Mucosa Moist & [place] , Nares Patent, Normal Nasal Septum, Posterior Pharynx Clear, PERRLA Neck: Supple, Trachea Midline. No: JVD, Thyromegaly Lungs: Clear to Auscultation, Normal Respiratory Effort. No: Crackles, Rales, Rhonchi, Rub, Stridor, Wheezing Cardiovascular: Regular Rate, Regular Rhythm. No: Systolic Murmur, Diastolic Murmur GI/Abdominal Exam: Normal Bowel Sounds, Soft, Non-Tender, No Organomegaly, No Distention, No Abnormal Bruit, No Mass, Pelvis Stable (Male) Exam: Deferred Rectal (Males) Exam: Deferred Back Exam: Normal Inspection, Full Range of Motion Extremities: Normal Inspection, Normal Range of Motion, Non-Tender, No Pedal Edema, Normal Capillary Refill Peripheral Pulses: 2+: Radial (L), Radial (R), Posterior Tibial (L), Posterior Tibial (R), Dorsalis Pedis (L), Dorsalis Pedis (R) Skin: Warm, Dry, Intact. No: Moist, Rash, Petechia, Ecchymosis Neurological: Cranial Nerves Intact (Grossly) Neuro Extensive - Mental Status: Alert, Oriented x3, Normal Mood/Affect, Normal Cognition, Memory Intact Neuro Extensive - Motor, Sensory, Reflexes: CN II-XII Intact (Grossly) Psychiatric: Alert, Normal Affect, Normal Mood - Patient Data Result Diagrams: 09/29/17 16:00 09/29/17 16:00 *Q Meaningful Use (ADM) - VTE *Q VTE Criteria *Q: - Stroke *Q Stroke Criteria *Q: - AMI *Q AMI Criteria *Q: - Problem List (1) Malignant hypertension SNOMED Code(s): 28212883 ICD Code: I10 - ESSENTIAL (PRIMARY) HYPERTENSION Status: Acute Priority: High Current Visit: Yes (2) Pancreatitis SNOMED Code(s): 20013745 ICD Code: K85.90 - ACUTE PANCREATITIS WITHOUT NECROSIS OR INFECTION, UNSP Status: Acute Priority: High Current Visit: Yes Qualifiers: Chronicity: acute Pancreatitis type: other Acute pancreatitis complication: no infection or necrosis Qualified Code(s): K85.80 - Other acute pancreatitis without necrosis or infection (3) Urticaria SNOMED Code(s): 340169270 ICD Code: L50.9 - URTICARIA, UNSPECIFIED Status: Resolved Priority: High Current Visit: Yes (4) Diarrhea SNOMED Code(s): 15266639 ICD Code: R19.7 - DIARRHEA, UNSPECIFIED Status: Resolved Priority: High Current Visit: Yes Qualifiers: Diarrhea type: unspecified type Qualified Code(s): R19.7 - Diarrhea, unspecified (5) Vomiting SNOMED Code(s): 342358036 ICD Code: R11.10 - VOMITING, UNSPECIFIED Status: Resolved Priority: High Current Visit: Yes Qualifiers: Vomiting type: bilious vomiting Nausea presence: with nausea Qualified Code(s): R11.14 - Bilious vomiting Problem List Initiated/Reviewed/Updated: Yes Orders Last 24hrs: Active Orders 24 hr Category Date Time Status CULTURE STOOL + SHIGATOX [RM] Routine Lab 09/29/17 22:04 Uncollected T4 FREE [CHEM] Routine Lab 09/29/17 22:05 Ordered TSH [CHEM] Routine Lab 09/29/17 22:05 Ordered WBC, STOOL [OP] Routine Lab 09/29/17 22:04 Uncollected Medication Orders Acetaminophen (Tylenol) 650 mg PO Q4H PRN PRN Reason: Pain (Mild 1-3)/fever Albuterol/Ipratropium (Duoneb 3.0-0.5 Mg/3 Ml) 3 ml NEB Q4H PRN PRN Reason: Shortness Of Breath/wheezing Bisacodyl (Dulcolax) 5 mg PO DAILY PRN PRN Reason: Constipation Docusate Sodium (Colace) 100 mg PO BID PRN PRN Reason: Constipation Famotidine (Pepcid) 20 mg PO BID MICHAEL Last Admin: 09/29/17 21:53 Dose: Hydralazine HCl (Apresoline) 20 mg IVPUSH Q4H PRN PRN Reason: Hypertension Hydrochlorothiazide (Hydrochlorothiazide) 25 mg PO BIDDIURETIC [facility] Hydromorphone HCl (Dilaudid) 1 mg IVPUSH Q4H PRN PRN Reason: Pain (severe 7-10) Last Admin: 09/29/17 20:42 Dose: 1 mg Sodium Chloride (Normal Saline) 1,000 mls @ 150 mls/hr IV ASDIRECTED [facility] Last Admin: 09/29/17 18:59 Dose: 150 mls/hr Promethazine HCl 12.5 mg/ (Sodium Chloride) 50.5 mls @ 100 mls/hr IV Q6H PRN PRN Reason: Nausea/Vomiting Dextrose/Sodium Chloride (Dextrose 5%-Normal Saline) 1,000 mls @ 100 mls/hr IV ASDIRECTED [facility] Lisinopril (Prinivil) 20 mg PO DAILY [facility] Lorazepam (Ativan) 1 mg IV Q6H PRN PRN Reason: Anxiety Magnesium Sulfate (Pharmacy To Dose - Magnesium Replacement) 1 dose .XX ASDIRECTED [facility] Metoprolol Tartrate (Lopressor) 5 mg IVPUSH Q4H PRN PRN Reason: Tachycardia Ondansetron HCl (Zofran) 4 mg IV Q6H PRN PRN Reason: Nausea/Vomiting Oxycodone HCl (Oxycodone) 5 mg PO Q4H PRN PRN Reason: Pain (moderate 4-6) Polyethylene Glycol (Miralax) 17 gm PO DAILY PRN PRN Reason: Constipation Potassium Chloride (Pharmacy To Dose - Potassium Replacement) 1 dose .XX ASDIRECTED [facility] Senna/Docusate Sodium (Senna Plus) 1 tab PO BID PRN PRN Reason: Constipation Sodium Chloride (Saline Flush) 10 ml FLUSH ASDIRECTED PRN PRN Reason: Keep Vein Open Last Admin: 09/29/17 15:55 Dose: 10 ml Temazepam (Restoril) 15 mg PO BEDTIME PRN PRN Reason: Sleep Assessment/Plan Comment:: I/P: Acute: Pancreatitis -Abdominal pain, nausea, vomiting and diarrhea earlier in day - resolved now -Afebrile -Reports multiple similar episodes over past few weeks that begin at 3am -Sees GI in [place] - still attempting to diagnose; patient cannot remember physicians name -Reports this episode was slightly different as it included chest pain and a rash today -WBC 14.75 -Lipase 836 -CRP ordered -Lipid panel ordered -Abdominal ultrasound obtained 09/29/17 -Suboptimal study due to bowel gas. No definite abnormality is seen -Reports multiple past abdominal ultrasounds - all with difficulty from bowel gas -Reports multiple prior CT scans with no abnormalities noted -NPO now - advance diet to clear liquids tomorrow -States GI specialist requested stool study and thyroid tests if episode happens again - ordered -Fluids as ordered -Consider CT scan of abdomen if symptoms return -[place] Criteria: -On admission: WBC >16k (0) ; Age >55 (1); Glucose >200 (0); AST >250 (0) , (LDH not obtained)= 1 (1% predicted mortality) Malignant HTN -Likely 2/2 pain, diarrhea, vomiting -BP 171/146 in ED -Clonidine 0.1mg PO given -Continue home lisinopril -HCTZ 25mg PO BID -PRN hydralazine and BB -PRN pain medications Dehydration -2/2 diarrhea and vomiting -diarrhea and vomiting appear to have resolved -Anion gap 17.0 -Dry mucous membranes -PRN zofran for nausea -Fluids as ordered Generalized urticaria with dermatographia -In ED on chest and abdomen -Denied any anaphylactic symptoms -No new soap, laundry detergent, jewelry, foods, lotions, detergent, etc. -Resolved prior to admission -monitor Chronic: Impaired viison HLD HTN Hypertriglyceridemia GERD Arthritis Chronic back pain Plan: Admit to medical floor observation status GI prophylaxis: pepcid DVT/PE prophylaxis: SCDs Other orders as indicated above Routine AM labs Home medications as ordered Will need f/u with GI specialist Code status: Full code; PCP Dr. Schmidt at [facility] in [place].
[2017-09-30] MEDS: HYDROmorphone 1 MG/ML Syringe IVPUSH PRN (02:45)
[2017-09-30] MEDS: Hydrochlorothiazide 25 MG Tab PO SCH ×2 (06:03→14:48)
[2017-09-30] MEDS: Famotidine 20 MG Tab PO SCH (08:00)
[2017-09-30] MEDS ORDERED: Lisinopril 20 MG Tab PO SCH (09:00)
[2017-09-30] MEDS ORDERED: Magnesium Oxide 400 MG Tab PO ONE (09:00)
--- NOTE | 2017-09-30 10:40 | CR ---
Abdominal series: Supine and upright views of the abdomen were obtained as well as frontal view of the chest. Comparison: Prior chest x-ray of 12/28/15 and abdominal x-ray of 11/01/13. Slight atelectasis within the left lung base is seen. Small nodule is identified within the right lung base which is stable from prior chest x-ray and is felt compatible with a granuloma. Lungs otherwise are clear. Heart size and mediastinum are normal. Bowel gas pattern appears within normal limits. No abnormal calcifications or soft tissue abnormality is seen. Impression: 1. Incidental findings. Nothing acute is seen on abdominal series. Diagnostic code #2
[2017-09-30] MEDS ORDERED: Sodium Chloride 0.9% 500 ML IV ONE (12:31)
[2017-09-30] MEDS ORDERED: Iopamidol 755 MG/ML 50 ML Bottle IVPUSH ONE (12:56)
[2017-09-30] MEDS ORDERED: Iopamidol 755 Mg/ML 100 ML Bottle IVPUSH ONE (12:56)
[2017-09-30] MEDS ORDERED: Sodium Chloride 0.9% 10 ML Syringe FLUSH ONE (12:56)
[2017-09-30] MEDS ORDERED: Sodium Chloride 0.9% 100 ML IV SCH (13:00)
--- NOTE | 2017-09-30 13:03 | PCM.DCSUM1 ---
Discharge Summary - Hospital Course Brief History: Yohan Webster is a 57 yo male with past medical hx/o HLD, HTN , hypertriglyceridemia, asthma, colon polyps, gastritis, GERD, arthritis, chronic back pain who presents to ED with abdominal pain, nausea, vomiting, diarrhea, and chest pain that radiates into his back. He reports some type of undiagnosed GI problem or he gets these symptoms frequently. He was admitted for medical management of mild acute pancreatitis. - Discharge Data Discharge Date: 09/30/17 Discharge Disposition: Home, Self-Care 01 Condition: Good - Discharge Diagnosis/Problem(s) (1) Malignant hypertension SNOMED Code(s): 66877048 ICD Code: I10 - ESSENTIAL (PRIMARY) HYPERTENSION Status: Resolved Priority: High (2) Pancreatitis SNOMED Code(s): 86098666 ICD Code: K85.90 - ACUTE PANCREATITIS WITHOUT NECROSIS OR INFECTION, UNSP Status: Resolved Priority: High Qualifiers: Chronicity: acute Pancreatitis type: other Acute pancreatitis complication: no infection or necrosis Qualified Code(s): K85.80 - Other acute pancreatitis without necrosis or infection (3) HLD (hyperlipidemia) SNOMED Code(s): 17624765 ICD Code: E78.5 - HYPERLIPIDEMIA, UNSPECIFIED Status: Acute Qualifiers: Hyperlipidemia type: unspecified Qualified Code(s): E78.5 - Hyperlipidemia , unspecified (4) Urticaria SNOMED Code(s): 353571776 ICD Code: L50.9 - URTICARIA, UNSPECIFIED Status: Resolved - Patient Summary/Data Operative Procedure(s) Performed: None Complications: None Consults: None Labs Pending at D/C: None Recommended Follow-up Testing/Procedures: None Planned Operative Procedure(s) after DC: None Hospital Course: Patient was primarily admitted for medical management of mild acute pancreatitis. He carried a hx/o intermittent abdominal pain with unknown etiology. He had been formally evaluated by Dr. Guardado in [place] but so far all work up revealed no definitive diagnosis On this admission, he was found to have a slightly elevated lipase level. All imaging studies showed to clear cause of his pancreatitis. His RENATA's criteria was also mild despite not having an LDH level. However he received supportive care and slowly introduce diet until he was able to tolerate regular meal. His hospital course was complicated by the presentation of malignant hypertension. He carried a hx/o HTN and we felt this may have been exacerbated by stress along with abdominal pain. But with appropriate treatment, his pressures improved significantly. Patient was stable upon discharge. He was advised to stay away from fatty and greasy meal for 3 days. We was informed to follow up with his GI specialist in [place] after the holiday. He was further advised to check his blood pressures 3x/day and at least 4/week; show his log to his PCP on follow up appointment in 1 week. The patient expressed understanding and in agreement with the plans as discussed above. All questions were answered. On the day of discharge, he was provided a copy of his abdominal/pelvis CT scan report to take it to his PCP on follow up appointment. - Patient Instructions Diet: Heart Healthy Diet, Usual Diet as Tolerated, Weight Loss Diet Activity: As Tolerated Driving: May Drive Today Showering/Bathing: May Shower Notify Provider of: Fever, Increased Pain, Nausea and/or Vomiting Other/Special Instructions: - Please resume all home medications. - Continue routine home/work activities. - Avoid geasy and fatty meal for 3 days. - Check your blood pressure at least 3x/day and 4x/week. Show log to your PCP on follow up appointment. - Recommend you see Dr. Moura in [place] after the holiday. - Follow up your PCP in 1 week. - Call or come back if your symptoms recur or persist - Discharge Plan Home Medications: Home Meds Albuterol Sulfate [Proair Hfa] 1 puff INH ASDIRECTED PRN 04/27/16 [History] Famotidine 40 mg PO DAILY PRN 04/27/16 [History] Fenofibrate 160 mg PO DAILY 04/27/16 [History] Lisinopril 20 mg PO DAILY 04/27/16 [History] Omeprazole 20 mg PO DAILY 04/27/16 [History] Ondansetron [Zofran] 4 mg BUCCAL Q6H PRN #8 tab 04/19/17 [Rx] Patient Handouts: Nausea, Adult, Cholesterol, [id number], Fat and Cholesterol Restricted Diet, Acute Pancreatitis, Lzgs-lb-[id number], Hypertension, [id number], Food Choices to Lower Your Triglycerides, Managing Your High Blood Pressure Referrals: Sparkle Schmidt MD [Primary Care Provider] - (Make an appointment for follow-up in 1 week.) Dakota Guardado MD [Ordering Only Provider] - (Follow-up with after the new year.) - Discharge Summary/Plan Comment DC Time >30 min.: Yes (45 mins) Discharge Summary/Plan Comment: Discharge to Home - General Info Date of Service: 09/30/17 Admission Dx/Problem (Free Text: Acute Pancreatitis Subjective Update: Follow Up Functional Status: Reports: Pain Controlled, Tolerating Diet, Ambulating, Urinating. Denies: New Symptoms - Review of Systems General: Denies: Fever, Weakness, Fatigue, Malaise, Chills HEENT: Reports: No Symptoms Pulmonary: Denies: Shortness of Breath Cardiovascular: Denies: Chest Pain, Palpitations, Dyspnea on Exertion, Lightheadedness Gastrointestinal: Reports: Flatus. Denies: Abdominal Pain, Constipation, Decreased Appetite, Diarrhea, Difficulty Swallowing, Nausea, Vomiting Genitourinary: Reports: No Symptoms Musculoskeletal: Reports: No Symptoms Skin: Denies: Mottled, Pallor, Diaphoresis, Rash Neurological: Denies: Confusion, Difficulty Walking, Weakness, Gait Disturbance Psychiatric: Denies: Depression, Anxiety, Agitation, Hallucinations Systems Review Comment: No overnight or acute issues. He was doing relatively well. He was tolerating his regular diet w/o any GI issues. His lipase was back to normal level. He reported no new complaints. - Patient Data Vitals - Most Recent: Last Vital Signs Temp 36.7 C 09/30/17 12:02 Pulse 89 09/30/17 12:02 Resp 32 H 09/30/17 12:02 BP 142/93 H 09/30/17 12:02 Pulse Ox 97 09/30/17 12:02 Weight - Most Recent: 121.971 kg I&O - Last 24 hours: Intake & Output 09/29/17 09/30/17 09/30/17 22:59 06:59 14:59 Intake Total 1277 Balance 1277 Lab Results - Last 24 hrs: Laboratory Results - last 24 hr 09/30/17 09/30/17 09/30/17 Range/Units 05:34 05:34 05:34 WBC 12.60 H (4.23-9.07) K/mm3 RBC 5.23 (4.63-6.08) M/mm3 Hgb 15.5 (13.7-17.5) gm/L Hct 44.6 (40.1-51.0) % MCV 85.3 (79.0-92.2) fl MCH 29.6 (25.7-32.2) pg MCHC 34.8 (32.2-35.5) g/dl RDW Std Deviation 43.2 (35.1-43.9) fL Plt Count 302 (163-337) K/mm3 MPV 9.0 L (9.4-12.3) fl Neut % (Auto) 89.0 H (34.0-67.9) % Lymph % (Auto) 9.2 L (21.8-53.1) % [place] % (Auto) 1.4 L (5.3-12.2) % Eos % (Auto) 0.1 L (0.8-7.0) Baso % (Auto) 0.1 (0.1-1.2) % Neut # (Auto) 11.22 H (1.78-5.38) K/mm3 Lymph # (Auto) 1.16 L (1.32-3.57) K/mm3 [place] # (Auto) 0.18 L (0.30-0.82) K/mm3 Eos # (Auto) 0.01 L (0.04-0.54) K/mm3 Baso # (Auto) 0.01 (0.01-0.08) K/mm3 Manual Slide Review Abnormal smear Sodium 142 (136-145) mEq/L Potassium 4.0 (3.5-5.1) mEq/L Chloride 107 (98-107) mEq/L Carbon Dioxide 23 (21-32) mEq/L Anion Gap 16.0 H (5-15) BUN 14 (7-18) mg/dL Creatinine 1.1 (0.7-1.3) mg/dL Est Cr Clr Drug Dosing 82.30 mL/min Estimated GFR (MDRD) > 60 (>60) mL/min BUN/Creatinine Ratio 12.7 L (14-18) Glucose 193 H (74-106) mg/dL Calcium 8.2 L (8.5-10.1) mg/dL Magnesium 1.6 L (1.8-2.4) mg/dl C-Reactive Protein 0.7 (<1.0) mg/dL Triglycerides 98 (<150) mg/dL Cholesterol 182 (<200) mg/dL LDL Cholesterol Direct 123 H* (<100) mg/dL HDL Cholesterol 43.0 (40-59) mg/dL Lipase 149 (73-393) U/L Med Orders - Current: Current Medications Acetaminophen (Tylenol) 650 mg PO Q4H PRN PRN Reason: Pain (Mild 1-3)/fever Albuterol/Ipratropium (Duoneb 3.0-0.5 Mg/3 Ml) 3 ml NEB Q4H PRN PRN Reason: Shortness Of Breath/wheezing Bisacodyl (Dulcolax) 5 mg PO DAILY PRN PRN Reason: Constipation Docusate Sodium (Colace) 100 mg PO BID PRN PRN Reason: Constipation Famotidine (Pepcid) 20 mg PO BID [facility] Last Admin: 09/30/17 08:00 Dose: 20 mg Hydralazine HCl (Apresoline) 20 mg IVPUSH Q4H PRN PRN Reason: Hypertension Hydrochlorothiazide (Hydrochlorothiazide) 25 mg PO BIDDIURETIC [facility] Last Admin: 09/30/17 06:03 Dose: 25 mg Hydromorphone HCl (Dilaudid) 1 mg IVPUSH Q4H PRN PRN Reason: Pain (severe 7-10) Last Admin: 09/30/17 02:45 Dose: 1 mg Promethazine HCl 12.5 mg/ (Sodium Chloride) 50.5 mls @ 100 mls/hr IV Q6H PRN PRN Reason: Nausea/Vomiting Dextrose/Sodium Chloride (Dextrose 5%-Normal Saline) 1,000 mls @ 100 mls/hr IV ASDIRECTED [facility] Last Admin: 09/30/17 02:44 Dose: 100 mls/hr Lisinopril (Prinivil) 20 mg PO DAILY [facility] Last Admin: 09/30/17 08:00 Dose: 20 mg Lorazepam (Ativan) 1 mg IV Q6H PRN PRN Reason: Anxiety Magnesium Sulfate (Pharmacy To Dose - Magnesium Replacement) 1 dose .XX ASDIRECTED [facility] Metoprolol Tartrate (Lopressor) 5 mg IVPUSH Q4H PRN PRN Reason: Tachycardia Ondansetron HCl (Zofran) 4 mg IV Q6H PRN PRN Reason: Nausea/Vomiting Oxycodone HCl (Oxycodone) 5 mg PO Q4H PRN PRN Reason: Pain (moderate 4-6) Last Admin: 09/30/17 06:02 Dose: 5 mg Polyethylene Glycol (Miralax) 17 gm PO DAILY PRN PRN Reason: Constipation Potassium Chloride (Pharmacy To Dose - Potassium Replacement) 1 dose .XX ASDIRECTED [facility] Senna/Docusate Sodium (Senna Plus) 1 tab PO BID PRN PRN Reason: Constipation Sodium Chloride (Saline Flush) 10 ml FLUSH ASDIRECTED PRN PRN Reason: Keep Vein Open Last Admin: 09/29/17 15:55 Dose: 10 ml Temazepam (Restoril) 15 mg PO BEDTIME PRN PRN Reason: Sleep Discontinued Medications Clonidine HCl (Catapres) 0.1 mg PO ONETIME ONE Stop: 09/29/17 19:18 Last Admin: 09/29/17 20:45 Dose: 0.1 mg Diphenhydramine HCl (Benadryl) 50 mg IVPUSH ONETIME ONE Stop: 09/29/17 14:26 Last Admin: 09/29/17 15:54 Dose: 50 mg Famotidine (Pepcid) 20 mg IVPUSH ONETIME ONE Stop: 09/29/17 14:26 Last Admin: 09/29/17 15:54 Dose: 20 mg Hydromorphone HCl (Dilaudid) 1 mg IVPUSH ONETIME ONE Stop: 09/29/17 14:26 Last Admin: 09/29/17 15:54 Dose: 1 mg Hydromorphone HCl (Dilaudid) 0.5 mg IVPUSH ONETIME ONE Stop: 09/29/17 17:19 Last Admin: 09/29/17 17:26 Dose: 0.5 mg Sodium Chloride (Normal Saline) 1,000 mls @ 1,000 mls/hr IV .BOLUS STA Stop: 09/29/17 15:18 Last Admin: 09/29/17 15:55 Dose: 1,000 mls/hr Sodium Chloride (Normal Saline) 1,000 mls @ 150 mls/hr IV ASDIRECTED MICHAEL Last Admin: 09/29/17 18:59 Dose: 150 mls/hr Sodium Chloride (Normal Saline) 500 mls @ 999 mls/hr IV .BOLUS ONE Stop: 09/30/17 13:01 Magnesium Oxide (Magnesium Oxide) 800 mg PO ONETIME ONE Stop: 09/30/17 09:01 Last Admin: 09/30/17 09:13 Dose: 800 mg Methylprednisolone Sodium Succinate (Solu-Medrol) 125 mg IM ONETIME ONE Stop: 09/29/17 14:25 Last Admin: 09/29/17 15:53 Dose: 125 mg Non-Formulary Medication (Ondansetron) 4 mg BUCCAL Q6H PRN PRN Reason: nausea or vomiting Ondansetron HCl (Zofran) 4 mg IVPUSH ONETIME ONE Stop: 09/29/17 14:20 Last Admin: 09/29/17 15:54 Dose: 4 mg - Exam General: Reports: Alert, Oriented, Cooperative, No Acute Distress, Other (Obese) HEENT: Reports: Pupils Equal, Pupils Reactive, EOMI, Mucous Membr. Moist/[place] Neck: Reports: Supple, Trachea Midline, No JVD Lungs: Reports: Clear to Auscultation, Normal Respiratory Effort Cardiovascular: Reports: Regular Rate, Regular Rhythm GI/Abdominal Exam: Normal Bowel Sounds, Soft, Non-Tender, No Organomegaly, No Distention, No Abnormal Bruit, No Mass, Other (Obese) (Male) Exam: Deferred Rectal (Males) Exam: Deferred Back Exam: Reports: Normal Inspection, Decreased Range of Motion Extremities: Normal Inspection, Normal Range of Motion, Non-Tender, No Pedal Edema, Normal Capillary Refill Skin: Reports: Warm, Dry, Intact Neurological: Reports: No New Focal Deficit Psy/Mental Status: Reports: Alert, Normal Affect, Normal Mood *Q Meaningful Use (DIS) - VTE *Q VTE Criteria *Q: - Stroke *Q Stroke Criteria *Q: - AMI *Q AMI Criteria *Q:
[2017-09-30] MEDS: Sodium Chloride 0.9% 10 ML Syringe FLUSH PRN (13:41)
--- NOTE | 2017-09-30 15:15 | CT ---
CT abdomen (with contrast) Technique: Multiple axial sections were obtained from above the dome of the diaphragm inferiorly through the pubic symphysis. Study performed during arterial and venous phases. Negative contrast was utilized for oral administration. IV contrast was utilized. Findings: Aorta: Minimal atherosclerotic calcification. No aneurysm or stenosis. Celiac axis: Within normal limits without stenosis. Renal arteries: Single renal arteries. No stenosis. Superior mesenteric artery: No stenosis. Inferior mesenteric artery: Patent without stenosis Iliac arteries: External iliac arteries are patent without stenosis. Common iliac arteries are patent without stenosis with mild atherosclerotic calcification. Proximal internal iliac arteries are patent. Other findings: Liver shows nothing acute. Incidental granuloma is seen within the right lobe. Diffuse fatty infiltration is seen of the liver. Spleen appears normal. Adrenal glands show no nodule. Pancreas is normal. 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 Kidneys show symmetric contrast enhancement. No retroperitoneal adenopathy or mesenteric abnormalities are seen. Appendix is seen which appears normal in size. No pelvic mass or adenopathy is seen. No free fluid or inflammatory change is seen. Diverticuli are seen within the sigmoid colon and within the descending colon. Impression: 1. Mild atherosclerotic calcification. No focal stenosis is seen within any of the visualized arteries. 2. Fatty infiltration within the liver and other incidental findings. Diagnostic code #2
[2017-09-30 16:02] VITALS: BP 144/87
== END 2017-09-30 17:30 | disposition home or self-care (01) ==
LOC: JD.ED 13:57 → SUPCPDRO 13:57 → JD.MS 19:18
PROVIDERS: ADMIT Internal Medicine; ATTEND Internal Medicine
DX: K85.80 Other acute pancreatitis without necrosis or infection (principal); E78.5 Hyperlipidemia, unspecified; I10 Essential (primary) hypertension; E78.1 Pure hyperglyceridemia; J45.909 Unspecified asthma, uncomplicated; K21.9 Gastro-esophageal reflux disease without esophagitis; M19.90 Unspecified osteoarthritis, unspecified site; E86.0 Dehydration; M54.9 Dorsalgia, unspecified; G89.29 Other chronic pain; L50.9 Urticaria, unspecified; Z79.899 Other long term (current) drug therapy; Z86.010 Personal history of colon polyps; Z88.0 Allergy status to penicillin
CPT/HCPCS: 36415; 74022; 74177; 76705; 80048; 80053; 80061; 81001; 83690; 83735; 84439; 84443; 84484; 85025; 86140; 93005; 96361; 96372; 96374; 96375; 96376; 99285; A9270; G0378; J1170; J1200; J2405; J2930; J7030; J7040; J7042; J7050; Q9967; 93010; 99284

== ENCOUNTER 2017-10-09 02:20 | Emergency (ER) | payer BC ==
[2017-10-09 02:48] VITALS: BP 138/95
[2017-10-09] MEDS ORDERED: HYDROmorphone 1 MG/ML Syringe IVPUSH ONE ×3 (03:09→05:57)
[2017-10-09] MEDS ORDERED: Ondansetron 4 MG/2 ML SDV IVPUSH ONE ×2 (03:09→05:01)
[2017-10-09] MEDS ORDERED: Sodium Chloride 0.9% 1,000 ML IV SCH (03:15)
--- NOTE | 2017-10-09 03:26 | EDM.PDOC ---
ED HPI GENERAL MEDICAL PROBLEM - General Chief Complaint: Gastrointestinal Problem Stated Complaint: VOMITING Time Seen by Provider: 10/09/17 02:30 Source of Information: Reports: Patient, Family History Limitations: Reports: No Limitations - History of Present Illness INITIAL COMMENTS - FREE TEXT/NARRATIVE: This is a 57-year-old male. In the last year he's been having episodes that started out with increase gas in his abdomen and he develops nausea and vomiting and diarrhea. He's had approximately 12 episodes of this and they're becoming more frequent. He just had an episode on the and 30 of September. He seen a specialist last week and he scheduled for a HIDA scan this coming week. When these episodes do occur they seem to be lasting longer and longer. Most recently he was noted to have an elevated lipase but when they did the CT scan of the abdomen and MRI of the abdomen there was no acute findings. He also has elevated triglycerides. He does not drink alcohol he is not a diabetic. He denies any other acute symptoms no fever no chills no cough no congestion. Lower Abdominal Pain Score (Numeric/FACES): 6 - Related Data Allergies Allergy/AdvReac Type Severity Reaction Status Date / Time Penicillins Allergy Rash Verified 10/09/17 02:48 Home Meds: Home Meds Albuterol Sulfate [Proair Hfa] 1 puff INH ASDIRECTED PRN 04/27/16 [History] Famotidine 40 mg PO DAILY PRN 04/27/16 [History] Fenofibrate 160 mg PO DAILY 04/27/16 [History] Lisinopril 20 mg PO DAILY 04/27/16 [History] Omeprazole 20 mg PO DAILY 04/27/16 [History] Past Medical History HEENT History: Reports: Impaired Vision Other HEENT History: wears corrective lenses Cardiovascular History: Reports: Hypertension, Other (See Below) Other Cardiovascular History: elevated triglycerides Respiratory History: Reports: Asthma Gastrointestinal History: Reports: Colon Polyp, Gastritis, GERD, Other (See Below) Other Gastrointestinal History: Fissure Genitourinary History: Reports: None Musculoskeletal History: Reports: Arthritis, Back Pain, Chronic Neurological History: Reports: Head Trauma Endocrine/Metabolic History: Reports: None Hematologic History: Reports: None Dermatologic History: Reports: None - Infectious Disease History Infectious Disease History: Reports: Other (See Below) Other Infectious Disease History: typhoid - Past Surgical History Head Surgeries/Procedures: Reports: Other (See Below) HEENT Surgical History: Reports: Other (See Below) Other HEENT Surgeries/Procedures: facial surgery-reconstruction Cardiovascular Surgical History: Reports: None Respiratory Surgical History: Reports: None GI Surgical History: Reports: Hernia Repair/Other Musculoskeletal Surgical History: Reports: Other (See Below) Other Musculoskeletal Surgeries/Procedures:: back nerve sx, plantar fasciatis, left broken arm, broken fingers and toes Social & Family History - Family History Family Medical History: Noncontributory Neurological: Reports: Alzheimers Disease, CVA, Dementia Other Neurological Family History: mom and dad - Tobacco Use Smoking Status *Q: Never Smoker Second Hand Smoke Exposure: No - Caffeine Use Caffeine Use: Reports: None - Recreational Drug Use Recreational Drug Use: No Drug Use in Last 12 Months: No - Living Situation & Occupation Living situation: Reports: , with Spouse Occupation: Employed ED ROS GENERAL - Review of Systems Review Of Systems: See Below Constitutional: Denies: Fever, Chills HEENT: Reports: No Symptoms Respiratory: Reports: No Symptoms Cardiovascular: Reports: No Symptoms Endocrine: Reports: No Symptoms GI/Abdominal: Reports: Abdominal Pain, Diarrhea, Nausea, Vomiting : Reports: No Symptoms Musculoskeletal: Reports: No Symptoms Skin: Reports: No Symptoms Neurological: Reports: No Symptoms Psychiatric: Reports: No Symptoms Hematologic/Lymphatic: Reports: No Symptoms ED EXAM, GI/ABD - Physical Exam Exam: See Below Exam Limited By: No Limitations General Appearance: Alert, WD/WN, Mild Distress Eyes: Bilateral: Normal Appearance Ears: Normal External Exam Nose: Normal Inspection Throat/Mouth: Normal Inspection, Normal Lips, Normal Voice Head: Normocephalic Neck: Supple Respiratory/Chest: No Respiratory Distress, Lungs Clear, Normal Breath Sounds Cardiovascular: Regular Rate, Rhythm, No Murmur GI/Abdominal Exam: Soft, Other (He complains of lower abdominal cramping not really upper quadrant tenderness on palpation, no masses no rebound or noted) Back Exam: Normal Inspection, Full Range of Motion Extremities: Normal Inspection, Normal Range of Motion Neurological: Alert, Oriented Psychiatric: Normal Affect, Normal Mood Skin Exam: Warm, Dry Course - Vital Signs Last Recorded V/S: Last Vital Signs Temp 97.9 F 10/09/17 02:44 Pulse 88 10/09/17 02:44 Resp 18 10/09/17 02:44 BP 138/95 H 10/09/17 02:44 Pulse Ox 98 10/09/17 02:44 - Orders/Labs/Meds Orders: Active Orders 24 hr Category Date Time Status Abdomen 2V AP Flat Upright [CR] Stat Exams 10/09/17 03:09 Taken HYDROmorphone [Dilaudid] Med 10/09/17 05:57 Once 0.5 mg IVPUSH ONETIME ONE Sodium Chloride 0.9% [Normal Saline] 1,000 ml Med 10/09/17 03:15 Active IV ASDIRECTED Medication Orders Sodium Chloride (Normal Saline) 1,000 mls @ 1,000 mls/hr IV ASDIRECTED MICHAEL Last Admin: 10/09/17 03:27 Dose: 1,000 mls/hr Labs: Laboratory Tests 10/09/17 10/09/17 Range/Units 03:20 03:20 WBC 11.37 H (4.23-9.07) K/mm3 RBC 5.82 (4.63-6.08) M/mm3 Hgb 17.1 (13.7-17.5) gm/L Hct 49.3 (40.1-51.0) % MCV 84.7 (79.0-92.2) fl MCH 29.4 (25.7-32.2) pg MCHC 34.7 (32.2-35.5) g/dl RDW Std Deviation 43.4 (35.1-43.9) fL Plt Count 315 (163-337) K/mm3 MPV 9.1 L (9.4-12.3) fl Neut % (Auto) 69.4 H (34.0-67.9) % Lymph % (Auto) 19.8 L (21.8-53.1) % [place] % (Auto) 7.9 (5.3-12.2) % Eos % (Auto) 2.5 (0.8-7.0) Baso % (Auto) 0.1 (0.1-1.2) % Neut # (Auto) 7.90 H (1.78-5.38) K/mm3 Lymph # (Auto) 2.25 (1.32-3.57) K/mm3 [place] # (Auto) 0.90 H (0.30-0.82) K/mm3 Eos # (Auto) 0.28 (0.04-0.54) K/mm3 Baso # (Auto) 0.01 (0.01-0.08) K/mm3 Sodium 142 (136-145) mEq/L Potassium 4.2 (3.5-5.1) mEq/L Chloride 106 (98-107) mEq/L Carbon Dioxide 22 (21-32) mEq/L Anion Gap 18.2 H (5-15) BUN 14 (7-18) mg/dL Creatinine 1.2 (0.7-1.3) mg/dL Est Cr Clr Drug Dosing 75.44 mL/min Estimated GFR (MDRD) > 60 (>60) mL/min BUN/Creatinine Ratio 11.7 L (14-18) Glucose 137 H (74-106) mg/dL Calcium 8.9 (8.5-10.1) mg/dL Total Bilirubin 0.5 (0.2-1.0) mg/dL AST 20 (15-37) U/L ALT 50 (16-63) U/L Alkaline Phosphatase 67 (46-116) U/L Total Protein 7.8 (6.4-8.2) g/dl Albumin 3.8 (3.4-5.0) g/dl Globulin 4.0 gm/dL Albumin/Globulin Ratio 1.0 (1-2) Lipase 332 (73-393) U/L Meds: Medications Generic Name Dose Route Start Last Admin Trade Name Freq PRN Reason Stop Dose Admin Sodium Chloride 1,000 mls @ 1,000 mls/hr 10/09/17 03:15 10/09/17 03:27 Normal Saline IV 1,000 mls/hr ASDIRECTED MICHAEL Administration Discontinued Medications Generic Name Dose Route Start Last Admin Trade Name Freq PRN Reason Stop Dose Admin Hydromorphone HCl 1 mg 10/09/17 03:09 10/09/17 03:26 Dilaudid IVPUSH 10/09/17 03:10 1 mg ONETIME ONE Administration Hydromorphone HCl 1 mg 10/09/17 05:02 10/09/17 05:10 Dilaudid IVPUSH 10/09/17 05:03 1 mg ONETIME ONE Administration Ondansetron HCl 4 mg 10/09/17 03:09 10/09/17 03:26 Zofran IVPUSH 10/09/17 03:10 4 mg ONETIME ONE Administration Ondansetron HCl 4 mg 10/09/17 05:01 10/09/17 05:09 Zofran IVPUSH 10/09/17 05:02 4 mg ONETIME ONE Administration - Radiology Interpretation Free Text/Narrative:: Flat and upright does show some air-fluid levels but no obstructive symptoms just an ileus - Re-Assessments/Exams Free Text/Narrative Re-Assessment/Exam: 10/09/17 05:58 I spoke to the patient regarding the flat and upright x-rays to the patient he does not appear to have an obstructive type pattern. His blood work CBC and CMP were completely normal this evening. He is feeling fairly better with his medications and with the fluids. Departure - Departure Time of Disposition: 05:58 Disposition: Home, Self-Care 01 Condition: Fair Clinical Impression: Abdominal cramping Nausea and vomiting Qualifiers: Vomiting type: unspecified Vomiting Intractability: non-intractable Qualified Code(s): R11.2 - Nausea with vomiting, unspecified Diarrhea Qualifiers: Diarrhea type: unspecified type Qualified Code(s): R19.7 - Diarrhea, unspecified - Discharge Information Instructions: Dehydration, Adult, [id number], Nausea and Vomiting, Adult, [id number] Referrals: Sparkle Schmidt MD [Primary Care Provider] - Forms: ED Department Discharge Additional Instructions: Stay on liquids only for the next 24 hours, continue to follow up with the GI doctor and get that scan done this week to look at her gallbladder, if there is marked worsening of your symptoms call the GI doctor or return to the ER - My Orders Last 24 Hours: My Active Orders 10/09/17 03:09 Abdomen 2V AP Flat Upright [CR] Stat 10/09/17 03:15 Sodium Chloride 0.9% [Normal Saline] 1,000 ml IV ASDIRECTED 10/09/17 05:57 HYDROmorphone [Dilaudid] 0.5 mg IVPUSH ONETIME ONE - Assessment/Plan Last 24 Hours: My Active Orders 10/09/17 03:09 Abdomen 2V AP Flat Upright [CR] Stat 10/09/17 03:15 Sodium Chloride 0.9% [Normal Saline] 1,000 ml IV ASDIRECTED 10/09/17 05:57 HYDROmorphone [Dilaudid] 0.5 mg IVPUSH ONETIME ONE
--- NOTE | 2017-10-09 12:53 | CR ---
Abdomen: Supine and upright views of the abdomen were obtained. Comparison: Prior CT abdomen and pelvis study of 09/30/17. Abdominal series of 09/29/17 is also available. Slightly prominent gas within loops of small bowel are seen within both right and left sides of the abdomen. Air-fluid levels are seen within these small bowel loops. No free air is seen. Degenerative endplate spurring is noted within the spine. Impression: 1. Slightly prominent small bowel with air-fluid levels. Findings could represent gastroenteritis. Difficult to exclude an early distal small bowel obstruction. Diagnostic code #3
== END 2017-10-09 06:11 | disposition home or self-care (01) ==
LOC: JD.ED 02:20
DX: R10.30 Lower abdominal pain, unspecified (principal); R11.2 Nausea with vomiting, unspecified; R19.7 Diarrhea, unspecified; I10 Essential (primary) hypertension; Z88.0 Allergy status to penicillin; Z79.899 Other long term (current) drug therapy
CPT/HCPCS: 36415; 74019; 80053; 83690; 85025; 96361; 96374; 96375; 96376; 99284; J1170; J2405; J7040

== ENCOUNTER 2017-10-22 06:37 | Emergency (ER) | payer BC ==
[2017-10-22 06:57] VITALS: BP 167/107
[2017-10-22] MEDS ORDERED: Famotidine 20 MG/2 ML SDV IVPUSH ONE (07:16)
[2017-10-22] MEDS ORDERED: Ondansetron 4 MG/2 ML SDV IVPUSH ONE (07:16)
[2017-10-22] MEDS ORDERED: Sodium Chloride 0.9% 10 ML Syringe FLUSH PRN (07:16)
--- NOTE | 2017-10-22 07:25 | EDM.PDOC ---
ED HPI GENERAL MEDICAL PROBLEM - General Chief Complaint: Gastrointestinal Problem Stated Complaint: VOMITING/DIARRHEA Time Seen by Provider: 10/22/17 07:03 Source of Information: Reports: Patient, RN Notes Reviewed - History of Present Illness INITIAL COMMENTS - FREE TEXT/NARRATIVE: 57-year-old male comes in with abdominal pain, nausea vomiting diarrhea. This all started about 4 hours ago. He continues to feel quite nauseated. He is been having symptoms of this nature more and more frequently this past several months now about every 2 weeks or so. Starting 3 or 4 years ago he would have just 2 or 3 episodes a year and now becoming much more frequent with his last episode about 2 weeks ago. He has had a lot of outpatient visits, has had 2 colonoscopies. It does not appear that he is been on recent antibiotics. No fever chills. No chest pain or difficulty breathing. Bilateral Lower Abdomen Pain Score (Numeric/FACES): 3 - Related Data Allergies Allergy/AdvReac Type Severity Reaction Status Date / Time Penicillins Allergy Rash Verified 10/22/17 06:54 Home Meds: Home Meds Albuterol Sulfate [Proair Hfa] 1 puff INH ASDIRECTED PRN 04/27/16 [History] Lisinopril 20 mg PO DAILY 04/27/16 [History] Omeprazole 20 mg PO DAILY 04/27/16 [History] Ondansetron [Zofran ODT] 4 mg PO Q6H 10/22/17 [History] Past Medical History HEENT History: Reports: Impaired Vision Other HEENT History: wears corrective lenses Cardiovascular History: Reports: Hypertension, Other (See Below) Other Cardiovascular History: elevated triglycerides Respiratory History: Reports: Asthma Gastrointestinal History: Reports: Colon Polyp, Gastritis, GERD, Other (See Below) Other Gastrointestinal History: Fissure Genitourinary History: Reports: None Musculoskeletal History: Reports: Arthritis, Back Pain, Chronic Neurological History: Reports: Head Trauma Endocrine/Metabolic History: Reports: None Hematologic History: Reports: None Dermatologic History: Reports: None - Infectious Disease History Infectious Disease History: Reports: Other (See Below) Other Infectious Disease History: typhoid - Past Surgical History Head Surgeries/Procedures: Reports: Other (See Below) HEENT Surgical History: Reports: Other (See Below) Other HEENT Surgeries/Procedures: facial surgery-reconstruction Cardiovascular Surgical History: Reports: None Respiratory Surgical History: Reports: None GI Surgical History: Reports: Hernia Repair/Other Musculoskeletal Surgical History: Reports: Other (See Below) Other Musculoskeletal Surgeries/Procedures:: back nerve sx, plantar fasciatis, left broken arm, broken fingers and toes Social & Family History - Family History Family Medical History: Noncontributory Neurological: Reports: Alzheimers Disease, CVA, Dementia Other Neurological Family History: mom and dad - Tobacco Use Smoking Status *Q: Never Smoker Second Hand Smoke Exposure: No - Caffeine Use Caffeine Use: Reports: None - Recreational Drug Use Recreational Drug Use: No Drug Use in Last 12 Months: No - Living Situation & Occupation Living situation: Reports: , with Spouse Occupation: Employed ED ROS GENERAL - Review of Systems Review Of Systems: See Below Constitutional: Denies: Fever, Chills, Diaphoresis HEENT: Denies: Throat Pain Respiratory: Denies: Shortness of Breath, Pleuritic Chest Pain Cardiovascular: Denies: Chest Pain GI/Abdominal: Reports: Abdominal Pain (Generalized but more severe lower abdomen ), Diarrhea, Nausea (Frequent watery), Vomiting : Reports: No Symptoms Musculoskeletal: Reports: No Symptoms Skin: Reports: No Symptoms Neurological: Reports: No Symptoms ED EXAM, GI/ABD - Physical Exam Exam: See Below General Appearance: Alert, Anxious, Moderate Distress Eyes: Bilateral: Normal Appearance Throat/Mouth: Normal Inspection, Normal Oropharynx Head: Atraumatic. No: Facial Swelling Neck: Supple, Full Range of Motion Respiratory/Chest: No Respiratory Distress, Lungs Clear, Normal Breath Sounds Cardiovascular: Regular Rate, Rhythm GI/Abdominal Exam: Soft, Tender (Diffuse tenderness entire abdomen). No: Guarding, Rebound Back Exam: No: CVA Tenderness (L), CVA Tenderness (R) Extremities: Normal Inspection, Normal Range of Motion Neurological: Alert, Oriented, No Motor/Sensory Deficits Skin Exam: Warm, Dry, Normal Color Course - Vital Signs Last Recorded V/S: Last Vital Signs Temp 98.4 F 10/22/17 06:54 Pulse 84 10/22/17 06:54 Resp 16 10/22/17 06:54 BP 167/107 H 10/22/17 06:54 Pulse Ox 97 10/22/17 06:54 - Orders/Labs/Meds Orders: Active Orders 24 hr Category Date Time Status Peripheral IV Care [RC] . DIRECTED Care 10/22/17 07:18 Active Peripheral IV Insertion Adult [OM.PC] Stat Oth 10/22/17 07:16 Ordered Labs: Laboratory Tests 10/22/17 10/22/17 10/22/17 Range/Units 05:15 08:20 08:20 WBC 7.89 (4.23-9.07) K/mm3 RBC 5.64 (4.63-6.08) M/mm3 Hgb 16.6 (13.7-17.5) gm/L Hct 47.0 (40.1-51.0) % MCV 83.3 (79.0-92.2) fl MCH 29.4 (25.7-32.2) pg MCHC 35.3 (32.2-35.5) g/dl RDW Std Deviation 42.4 (35.1-43.9) fL Plt Count 292 (163-337) K/mm3 MPV 9.3 L (9.4-12.3) fl Neutrophils % (Manual) 62 H (40-60) % Band Neutrophils % 0 (0-10) % Lymphocytes % (Manual) 27 (20-40) % Atypical Lymphs % 0 % Monocytes % (Manual) 4 (2-10) % Eosinophils % (Manual) 7 (0.8-7.0) % Basophils % (Manual) 0 L (0.2-1.2) Platelet Estimate Adequate RBC Morph Comment Normal Sodium 141 (136-145) mEq/L Potassium 4.3 (3.5-5.1) mEq/L Chloride 108 H (98-107) mEq/L Carbon Dioxide 21 (21-32) mEq/L Anion Gap 16.3 H (5-15) BUN 13 (7-18) mg/dL Creatinine 0.9 (0.7-1.3) mg/dL Est Cr Clr Drug Dosing 98.78 mL/min Estimated GFR (MDRD) > 60 (>60) mL/min BUN/Creatinine Ratio 14.4 (14-18) Glucose 113 H (74-106) mg/dL Calcium 8.5 (8.5-10.1) mg/dL Total Bilirubin 0.5 (0.2-1.0) mg/dL AST 31 (15-37) U/L ALT 61 (16-63) U/L Alkaline Phosphatase 72 (46-116) U/L Total Protein 7.4 (6.4-8.2) g/dl Albumin 3.6 (3.4-5.0) g/dl Globulin 3.8 gm/dL Albumin/Globulin Ratio 1.0 (1-2) Lipase 253 (73-393) U/L C.difficile [id number] Presumptive negative C. difficile Tox (PCR) Negative Meds: Medications Discontinued Medications Generic Name Dose Route Start Last Admin Trade Name Freq PRN Reason Stop Dose Admin Famotidine 20 mg 10/22/17 07:16 10/22/17 07:32 Pepcid IVPUSH 10/22/17 07:17 20 mg ONETIME ONE Administration Hydromorphone HCl 0.5 mg 10/22/17 07:54 10/22/17 08:19 Dilaudid IVPUSH 10/22/17 07:55 0.5 mg ONETIME ONE Administration Hydromorphone HCl 0.5 mg 10/22/17 09:22 10/22/17 09:32 Dilaudid IVPUSH 10/22/17 09:23 0.5 mg ONETIME ONE Administration Sodium Chloride 1,000 mls @ 999 mls/hr 10/22/17 07:30 10/22/17 07:34 Normal Saline IV 999 mls/hr ONETIME MICHAEL Administration Sodium Chloride 1,000 mls @ 999 mls/hr 10/22/17 09:30 10/22/17 09:30 Normal Saline IV 999 mls/hr ONETIME MICHAEL Administration Metoclopramide HCl 5 mg 10/22/17 09:22 10/22/17 09:30 Reglan IVPUSH 10/22/17 09:23 5 mg ONETIME ONE Administration Ondansetron HCl 4 mg 10/22/17 07:16 10/22/17 07:33 Zofran IVPUSH 10/22/17 07:17 4 mg ONETIME ONE Administration Sodium Chloride 10 ml 10/22/17 07:16 10/22/17 07:34 Saline Flush FLUSH 10 ml ASDIRECTED PRN Administration Keep Vein Open - Re-Assessments/Exams Free Text/Narrative Re-Assessment/Exam: 10/22/17 18:51 Feeling better after 2 L of IV fluid, multiple doses of IV medication as documented. Discharge instructions as documented. Departure - Departure Time of Disposition: 10:45 Disposition: Home, Self-Care 01 Condition: Fair Clinical Impression: Vomiting, Diarrhea, Abdominal pain - Discharge Information Instructions: Nausea, Adult, Abdominal Pain, Adult, [id number], Diarrhea, Adult, [id number] Referrals: Sparkle Schmidt MD [Primary Care Provider] - Forms: ED Department Discharge Additional Instructions: Clear liquids for the next 4-6 hours, than very careful bland diet as tolerated , simple diet for now avoiding any gluten type foods in particular in case you do have gluten sensitivity. Eat regular meals and snacks but small amounts of food at a time to put less stress on your digestive system. Probiotic twice daily. Be sure to drink plenty of water to maintain hydration. Strongly consider getting a referral to [facility] if symptoms continue to worsen. - My Orders Last 24 Hours: My Active Orders 10/22/17 07:16 Peripheral IV Insertion Adult [OM.PC] Stat 10/22/17 07:18 Peripheral IV Care [RC] . DIRECTED - Assessment/Plan Last 24 Hours: My Active Orders 10/22/17 07:16 Peripheral IV Insertion Adult [OM.PC] Stat 10/22/17 07:18 Peripheral IV Care [RC] . DIRECTED
[2017-10-22] MEDS ORDERED: Sodium Chloride 0.9% 1,000 ML IV SCH ×2 (07:30→09:30)
[2017-10-22] MEDS ORDERED: HYDROmorphone 0.5 MG/0.5 ML Syringe IVPUSH ONE ×2 (07:54→09:22)
[2017-10-22] MEDS ORDERED: Metoclopramide 10 MG/2 ML SDV IVPUSH ONE (09:22)
== END 2017-10-22 10:50 | disposition home or self-care (01) ==
LOC: JD.ED 06:37
DX: R11.2 Nausea with vomiting, unspecified (principal); R19.7 Diarrhea, unspecified; R10.31 Right lower quadrant pain; R10.32 Left lower quadrant pain; I10 Essential (primary) hypertension; J45.909 Unspecified asthma, uncomplicated; K21.9 Gastro-esophageal reflux disease without esophagitis; Z79.899 Other long term (current) drug therapy; Z88.0 Allergy status to penicillin
CPT/HCPCS: 36415; 80053; 83690; 85025; 87493; 96361; 96374; 96375; 99284; J1170; J2405; J2765; J7040; J7050

== ENCOUNTER 2018-01-10 06:53 | Emergency (ER) | payer BC ==
[2018-01-10 07:06] VITALS: BP 156/113
[2018-01-10] MEDS ORDERED: Sodium Chloride 0.9% 1,000 ML IV STA (07:18)
[2018-01-10] MEDS ORDERED: Ondansetron 4 MG/2 ML SDV IVPUSH ONE (07:19)
[2018-01-10] MEDS ORDERED: Sodium Chloride 0.9% 10 ML Syringe FLUSH PRN (07:27)
[2018-01-10] MEDS ORDERED: HYDROmorphone 0.5 MG/0.5 ML SYRINGE IVPUSH ONE ×2 (07:41→08:56)
--- NOTE | 2018-01-10 08:07 | EDM.PDOC ---
ED HPI GENERAL MEDICAL PROBLEM - General Chief Complaint: Abdominal Pain Stated Complaint: ABDOMINAL PAIN Time Seen by Provider: 01/10/18 07:26 Source of Information: Reports: Patient, RN Notes Reviewed - History of Present Illness INITIAL COMMENTS - FREE TEXT/NARRATIVE: 57-year-old male comes in with lower abdominal pain, cramping, severe diarrhea, nausea vomiting. The onset of these symptoms last evening about 8 hours ago. Had been having somewhat loose stools for the prior few days. He has had somewhat frequent episodes of this nature over what sounds like the past couple of years or so. He did become violently ill last evening with repetitive frequent watery diarrhea. He states he spent much of the night on the toilet. He also did have some nausea vomiting when this first hit, no longer vomiting but still nauseated. No fever or chills. Mouth is starting to get dry this morning. Symptoms today are similar to what is had in the past with previous severe difficulty about 9 weeks ago. He has had his gallbladder looked at. He also has had upper GI and colonoscopy no problems found with those studies. Lower Abdominal Pain Score (Numeric/FACES): 8 - Related Data Allergies Allergy/AdvReac Type Severity Reaction Status Date / Time Penicillins Allergy Rash Verified 01/10/18 07:06 Home Meds: Home Meds Albuterol Sulfate [Proair Hfa] 1 puff INH ASDIRECTED PRN 04/27/16 [History] Lisinopril 20 mg PO DAILY 04/27/16 [History] Omeprazole 20 mg PO BID 04/27/16 [History] Ondansetron [Zofran ODT] 4 mg PO Q6H 10/22/17 [History] Ondansetron [Zofran ODT] 4 mg PO Q6H PRN #10 tab.dis 01/10/18 [Rx] Past Medical History HEENT History: Reports: Impaired Vision Other HEENT History: wears corrective lenses Cardiovascular History: Reports: Hypertension, Other (See Below) Other Cardiovascular History: elevated triglycerides Respiratory History: Reports: Asthma Gastrointestinal History: Reports: Colon Polyp, Gastritis, GERD, Other (See Below) Other Gastrointestinal History: Fissure Genitourinary History: Reports: None Musculoskeletal History: Reports: Arthritis, Back Pain, Chronic Neurological History: Reports: Head Trauma Endocrine/Metabolic History: Reports: None Hematologic History: Reports: None Dermatologic History: Reports: None - Infectious Disease History Infectious Disease History: Reports: Other (See Below) Other Infectious Disease History: typhoid - Past Surgical History Head Surgeries/Procedures: Reports: Other (See Below) HEENT Surgical History: Reports: Other (See Below) Other HEENT Surgeries/Procedures: facial surgery-reconstruction Cardiovascular Surgical History: Reports: None Respiratory Surgical History: Reports: None GI Surgical History: Reports: Hernia Repair/Other Musculoskeletal Surgical History: Reports: Other (See Below) Other Musculoskeletal Surgeries/Procedures:: back nerve sx, plantar fasciatis, left broken arm, broken fingers and toes Social & Family History - Family History Family Medical History: Noncontributory Neurological: Reports: Alzheimers Disease, CVA, Dementia Other Neurological Family History: mom and dad - Tobacco Use Smoking Status *Q: Never Smoker Second Hand Smoke Exposure: No - Caffeine Use Caffeine Use: Reports: None - Recreational Drug Use Recreational Drug Use: No Drug Use in Last 12 Months: No - Living Situation & Occupation Living situation: Reports: , with Spouse Occupation: Employed ED ROS GENERAL - Review of Systems Review Of Systems: See Below Constitutional: Denies: Fever, Chills HEENT: Reports: Other Respiratory: Denies: Shortness of Breath (Mouth is dry), Pleuritic Chest Pain Cardiovascular: Denies: Chest Pain GI/Abdominal: Reports: Abdominal Pain, Diarrhea (Mostly lower abdominal pain and cramping), Nausea, Vomiting Musculoskeletal: Reports: No Symptoms Skin: Reports: No Symptoms Neurological: Reports: No Symptoms ED EXAM, GI/ABD - Physical Exam Exam: See Below General Appearance: Alert, Mild Distress Eyes: Bilateral: Normal Appearance Throat/Mouth: Normal Inspection, Normal Oropharynx Neck: Supple, Full Range of Motion Respiratory/Chest: No Respiratory Distress, Lungs Clear, Normal Breath Sounds Cardiovascular: Normal Peripheral Pulses, Regular Rate, Rhythm GI/Abdominal Exam: Soft, Tender (Mild diffuse tenderness lower abdomen). No: Guarding, Rebound Back Exam: No: CVA Tenderness (L), CVA Tenderness (R) Extremities: Normal Inspection. No: Pedal Edema, Leg Pain Neurological: Alert, Oriented, No Motor/Sensory Deficits Skin Exam: Warm, Dry, Normal Color Course - Vital Signs Last Recorded V/S: Last Vital Signs Temp 97.9 F 01/10/18 07:03 Pulse 87 04/10/18 07:03 Resp 16 01/10/18 07:03 BP 156/113 H 01/10/18 07:03 Pulse Ox 97 01/10/18 07:03 - Orders/Labs/Meds Orders: Active Orders 24 hr Category Date Time Status Peripheral IV Care [RC] . DIRECTED Care 01/10/18 07:27 Active Peripheral IV Insertion Adult [OM.PC] Stat Oth 01/10/18 07:27 Ordered Labs: Laboratory Tests 01/10/18 01/10/18 Range/Units 07:15 07:15 WBC 11.64 H (4.23-9.07) K/mm3 RBC 6.14 H (4.63-6.08) M/mm3 Hgb 17.6 H (13.7-17.5) gm/L Hct 51.7 H (40.1-51.0) % MCV 84.2 (79.0-92.2) fl MCH 28.7 (25.7-32.2) pg MCHC 34.0 (32.2-35.5) g/dl RDW Std Deviation 43.4 (35.1-43.9) fL Plt Count 297 (163-337) K/mm3 MPV 9.2 L (9.4-12.3) fl Neutrophils % (Manual) 77 H (40-60) % Band Neutrophils % 3 (0-10) % Lymphocytes % (Manual) 18 L (20-40) % Atypical Lymphs % 0 % Monocytes % (Manual) 2 (2-10) % Eosinophils % (Manual) 0 L (0.8-7.0) % Basophils % (Manual) 0 L (0.2-1.2) Differential Comment See note Toxic Granulation 1+ slight Platelet Estimate See note RBC Morph Comment Not Reportable Sodium 139 (136-145) mEq/L Potassium 4.3 (3.5-5.1) mEq/L Chloride 105 (98-107) mEq/L Carbon Dioxide 22 (21-32) mEq/L Anion Gap 16.3 H (5-15) BUN 15 (7-18) mg/dL Creatinine 1.0 (0.7-1.3) mg/dL Est Cr Clr Drug Dosing 90.53 mL/min Estimated GFR (MDRD) > 60 (>60) mL/min BUN/Creatinine Ratio 15.0 (14-18) Glucose 134 H (74-106) mg/dL Calcium 9.1 (8.5-10.1) mg/dL Total Bilirubin 0.6 (0.2-1.0) mg/dL AST 38 H (15-37) U/L ALT 60 (16-63) U/L Alkaline Phosphatase 97 (46-116) U/L C-Reactive Protein 1.0 (<1.0) mg/dL Total Protein 7.8 (6.4-8.2) g/dl Albumin 4.0 (3.4-5.0) g/dl Globulin 3.8 gm/dL Albumin/Globulin Ratio 1.1 (1-2) Lipase 286 (73-393) U/L Meds: Medications Discontinued Medications Generic Name Dose Route Start Last Admin Trade Name Freq PRN Reason Stop Dose Admin Hydromorphone HCl 0.5 mg 01/10/18 07:41 01/10/18 07:52 Dilaudid IVPUSH 01/10/18 07:42 0.5 mg ONETIME ONE Administration Hydromorphone HCl 0.5 mg 01/10/18 08:56 01/10/18 09:19 Dilaudid IVPUSH 01/10/18 08:57 0.5 mg ONETIME ONE Administration Sodium Chloride 1,000 mls @ 999 mls/hr 01/10/18 07:18 01/10/18 07:20 Normal Saline IV 01/10/18 08:18 999 mls/hr NOW STA Administration Ondansetron HCl 4 mg 01/10/18 07:19 01/10/18 07:23 Zofran IVPUSH 01/10/18 07:20 4 mg ONETIME ONE Administration Sodium Chloride 10 ml 01/10/18 07:27 01/10/18 07:40 Saline Flush FLUSH 10 ml ASDIRECTED PRN Administration Keep Vein Open - Re-Assessments/Exams Free Text/Narrative Re-Assessment/Exam: 01/10/18 11:24 Patient did get moderate relief after IV fluid, IV Zofran and Dilaudid 0.5 mg IV. He was starting to get some abdominal pain and cramping back prior to discharge so he was given a second dose of Dilaudid 0.5 mg IV. His course history and current symptomatology are quite compatible with irritable bowel syndrome, especially with a lot of prior GI investigation not showing any other definitive answer for current and prior symptomatology. Discharge instructions as documented. Departure - Departure Time of Disposition: 08:56 Disposition: Home, Self-Care 01 Condition: Fair Clinical Impression: Irritable bowel syndrome Qualifiers: Irritable bowel syndrome type: with constipation Qualified Code(s): K58.1 - Irritable bowel syndrome with constipation - Discharge Information Prescriptions: Ondansetron [Zofran ODT] 4 mg PO Q6H PRN #10 tab.dis PRN Reason: Nausea/Vomiting Instructions: Irritable Bowel Syndrome, Adult Referrals: Sparkle Schmidt MD [Primary Care Provider] - Forms: ED Department Discharge Additional Instructions: Clear liquids until this evening, then very careful bland diet as tolerated, Zofran if needed for further nausea or vomiting. Try keep a food diary when having flareups like this to try see if there are, no fenders, try avoid gluten type foods for now. Keep to very simple bland diet for the next few days until symptoms have totally resolved. Probiotic 2-3 times daily. Follow-up with your regular medical provider in about 3-4 days for recheck. Return to ED if symptoms worsening in any way - My Orders Last 24 Hours: My Active Orders 01/10/18 07:27 Peripheral IV Care [RC] . DIRECTED Peripheral IV Insertion Adult [OM.PC] Stat - Assessment/Plan Last 24 Hours: My Active Orders 01/10/18 07:27 Peripheral IV Care [RC] . DIRECTED Peripheral IV Insertion Adult [OM.PC] Stat
== END 2018-01-10 09:38 | disposition home or self-care (01) ==
LOC: JD.ED 06:53
DX: K58.1 Irritable bowel syndrome with constipation (principal); I10 Essential (primary) hypertension; K21.9 Gastro-esophageal reflux disease without esophagitis; Z88.0 Allergy status to penicillin; Z79.899 Other long term (current) drug therapy
CPT/HCPCS: 36415; 80053; 83690; 85025; 86140; 96361; 96374; 96375; 96376; 99284; J1170; J2405; J7040; J7050

== ENCOUNTER 2018-11-19 09:14 | Emergency (ER) | payer BC ==
[2018-11-19 09:30] VITALS: BP 150/100
[2018-11-19] MEDS ORDERED: Lactated Ringers 1,000 ML IV ONE (10:07)
[2018-11-19] MEDS ORDERED: Metoclopramide 10 MG/2 ML SDV IVPUSH STA (10:21)
--- NOTE | 2018-11-19 10:44 | EDM.PDOC ---
ED HPI GENERAL MEDICAL PROBLEM - General Chief Complaint: Gastrointestinal Problem Stated Complaint: VOMITTING, Time Seen by Provider: 11/19/18 10:04 Source of Information: Reports: Patient, RN Notes Reviewed History Limitations: Reports: No Limitations - History of Present Illness INITIAL COMMENTS - FREE TEXT/NARRATIVE: The patient states he has recurrent episodes of nausea, vomiting, and watery diarrhea. He used to get these episodes every 6 weeks to 3 months, although the frequency increased last year, but now it has been since January 2018 since his last episode. He states that he has had similar symptoms, although not as severe , most of his life. This current episode began 2 days ago, then resolved, then started again around 22:30 last night. In addition to the gastroenteritis symptoms, the patient usually has associated left lower quadrant abdominal pain , however, not this time. The patient states that he took one tablet of loperamide last night, and a second tablet this morning. He has taken over-the- counter Pepto-Bismol. He took one tablet of Zofran 4 mg at 22:30 last night, then a second tablet around 03:45 this morning. The patient states that in addition to his history of recurrent nausea, vomiting , diarrhea, and abdominal pain, he also has a history of GERD. He was previously on omeprazole, but his Ict Security Specialist, Dr. Jose Daniel Arana in [place], recently switched him to prescription famotidine, which he has been taking once a day, and the omeprazole was discontinued. With today's symptoms, however, the patient states that he also took a single dose of his leftover omeprazole. The patient states that he has undergone 3 EGDs and colonoscopies, along with x- rays and bloodwork. The plan was for the patient to go to [place] to receive a CT scan of his abdomen and pelvis with his next flare, however, because the patient does not have abdominal pain this time, he came here instead. The patient's PCP is Dr. Sparkle Schmidt. Back Pain Score (Numeric/FACES): 6 - Related Data Allergies Allergy/AdvReac Type Severity Reaction Status Date / Time Penicillins Allergy Rash Verified 11/19/18 09:21 Home Meds: Home Meds Albuterol Sulfate [Proair Hfa] 1 puff INH ASDIRECTED PRN 04/27/16 [History] Lisinopril 20 mg PO DAILY 04/27/16 [History] Omeprazole 20 mg PO BID 04/27/16 [History] Ondansetron [Zofran ODT] 4 mg PO Q6H PRN #10 tab.dis 01/10/18 [Rx] Celecoxib 200 mg PO DAILY 11/19/18 [History] Esomeprazole Magnesium [Nexium 24Hr] 1 cap PO DAILY #30 capsule. 11/19/18 [Rx] Famotidine 20 mg PO DAILY 11/19/18 [History] Rosuvastatin [Crestor] 5 mg PO DAILY 11/19/18 [History] Past Medical History HEENT History: Reports: Impaired Vision Other HEENT History: wears corrective lenses Cardiovascular History: Reports: High Cholesterol (Hypertriglyceridemia), Hypertension Respiratory History: Reports: Asthma (since childhood, but asymptomatic x 2011. Never formally tested.) Gastrointestinal History: Reports: Colon Polyp, Gastritis, GERD, Other (See Below) (recurrent N/V/D of unknown etiology) Musculoskeletal History: Reports: Back Pain, Chronic, Osteoarthritis (lumbar spine) Neurological History: Reports: Head Trauma Endocrine/Metabolic History: Reports: Obesity/BMI 30+, Other (See Below) ( Prediabetes) - Past Surgical History HEENT Surgical History: Reports: Oral Surgery (2 wisdom teeth extracted), Other (See Below) (Facial reconstruction) GI Surgical History: Reports: Colonoscopy (x 3), EGD (x 3), Hernia, Inguinal ( left), Other (See Below) (Anal fissure only) Musculoskeletal Surgical History: Reports: ORIF (left forearm), Other (See Below ) (Bilateral plantar fasciitis surgery. 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 ED EXAM, GI/ABD - Physical Exam Exam: See Below Exam Limited By: No Limitations General Appearance: Alert, WD/WN, No Apparent Distress Eyes: Bilateral: Normal Appearance, EOMI Ears: Normal External Exam, Hearing Grossly Normal Nose: Normal Inspection Throat/Mouth: Normal Inspection, Normal Lips, Normal Voice, No Airway Compromise Head: Atraumatic, Normocephalic Neck: Normal Inspection, Full Range of Motion Respiratory/Chest: No Respiratory Distress, Lungs Clear, Normal Breath Sounds, No Accessory Muscle Use Cardiovascular: Normal Peripheral Pulses, No Edema, No Gallop, No JVD, No Murmur , No Rub, Tachycardia (regular) GI/Abdominal Exam: Normal Bowel Sounds, Soft, Non-Tender, No Organomegaly, No Distention, No Abnormal Bruit, No Mass, Other (Obese) (Male) Exam: Deferred Rectal (Males) Exam: Deferred Back Exam: Normal Inspection, Full Range of Motion, NT Extremities: Normal Inspection, Normal Range of Motion, No Pedal Edema, Normal Capillary Refill Neurological: Alert, Oriented, Normal Cognition, No Motor/Sensory Deficits Psychiatric: Normal Affect Skin Exam: Warm, Dry, Intact, Normal Color, No Rash Course - Vital Signs Last Recorded V/S: Last Vital Signs Temp 36.6 C 11/19/18 09:25 Pulse 117 H 11/19/18 09:25 Resp 12 11/19/18 09:25 BP 150/100 H 11/19/18 09:25 Pulse Ox 96 11/19/18 09:25 Orthostatic Blood Pressure [ 131/104 Standing] Orthostatic Blood Pressure [ 139/94 Sitting] Orthostatic Blood Pressure [ 122/84 Supine] - Orders/Labs/Meds Orders: Active Orders 24 hr Category Date Time Status Orthostatic Vital Signs [RC] STAT Care 11/19/18 10:07 Active Orthostatic Vital Signs [RC] STAT Care 11/19/18 10:09 Active Labs: Laboratory Tests 11/19/18 11/19/18 Range/Units 09:45 09:45 WBC 15.32 H (4.23-9.07) K/mm3 RBC 6.56 H (4.63-6.08) M/mm3 Hgb 19.3 H (13.7-17.5) gm/L Hct 55.2 H (40.1-51.0) % MCV 84.1 (79.0-92.2) fl MCH 29.4 (25.7-32.2) pg MCHC 35.0 (32.2-35.5) g/dl RDW Std Deviation 43.7 (35.1-43.9) fL Plt Count 295 (163-337) K/mm3 MPV 9.5 (9.4-12.3) fl Neutrophils % (Manual) 90 H (40-60) % Band Neutrophils % 0 (0-10) % Lymphocytes % (Manual) 6 L (20-40) % Atypical Lymphs % 0 % Monocytes % (Manual) 2 (2-10) % Eosinophils % (Manual) 2 (0.8-7.0) % Basophils % (Manual) 0 L (0.2-1.2) Platelet Estimate Adequate RBC Morph Comment Normal Sodium 139 (136-145) mEq/L Potassium 4.3 (3.5-5.1) mEq/L Chloride 104 (98-107) mEq/L Carbon Dioxide 21 (21-32) mEq/L Anion Gap 18.3 H (5-15) BUN 17 (7-18) mg/dL Creatinine 1.1 (0.7-1.3) mg/dL Est Cr Clr Drug Dosing 81.32 mL/min Estimated GFR (MDRD) > 60 (>60) mL/min BUN/Creatinine Ratio 15.5 (14-18) Glucose 149 H (74-106) mg/dL Calcium 9.0 (8.5-10.1) mg/dL Magnesium 1.8 (1.8-2.4) mg/dl Total Bilirubin 0.7 (0.2-1.0) mg/dL AST 25 (15-37) U/L ALT 47 (16-63) U/L Alkaline Phosphatase 99 (46-116) U/L Total Protein 8.4 H (6.4-8.2) g/dl Albumin 4.2 (3.4-5.0) g/dl Globulin 4.2 gm/dL Albumin/Globulin Ratio 1.0 (1-2) Meds: Medications Discontinued Medications Generic Name Dose Route Start Last Admin Trade Name Freq PRN Reason Stop Dose Admin Lactated Ringer's 1,000 mls @ 999 mls/hr 11/19/18 10:07 11/19/18 10:54 Ringers, Lactated IV 11/19/18 11:07 999 mls/hr .BOLUS ONE Administration Metoclopramide HCl 10 mg 11/19/18 10:21 11/19/18 10:54 Reglan IVPUSH 11/19/18 10:22 10 mg ONETIME STA Administration - Re-Assessments/Exams Free Text/Narrative Re-Assessment/Exam: 11/19/18 10:39 The patient's initial orthostatics were positive. He is receiving 1 L LR, after which his orthostatics will be rechecked. Since the patient took Zofran at home, I have ordered IV Reglan here. The patient's H/H is elevated at 19.3/55.2. Reviewing prior labs, I see that the patient has had an elevated H/H in the past, although they are not always elevated. The patient's blood glucose is elevated at 149. Reviewing prior labs, I see that the patient's blood glucose is always elevated, indicating that he has prediabetes, or, possibly, actual diabetes. I will update his PMHx. 11/19/18 11:48 Following 1 L of LR, the patient is no longer orthostatic. I will discharge him home. The patient is currently taking famotidine, one tablet daily, but is complaining of significant GERD-like symptoms. I will have him take one tablet of famotidine twice a day, but at the same time, I will prescribe Nexium which he can start today. He can then discontinue the famotidine after 3 days. He can follow-up with his Ict Security Specialist to see if he agrees with this regimen. Departure - Departure Time of Disposition: 11:48 Disposition: Home, Self-Care 01 Condition: Fair Clinical Impression: Gastroenteritis, GERD (gastroesophageal reflux disease) - Discharge Information *PRESCRIPTION DRUG MONITORING PROGRAM REVIEWED*: Not Applicable *COPY OF PRESCRIPTION DRUG MONITORING REPORT IN PATIENT MARK: Not Applicable Referrals: Sparkle Schimdt MD [Primary Care Provider] - Jose Daniel Arana MD [Ordering Only Provider] - Forms: ED Department Discharge Additional Instructions: You were seen in the emergency room for recurrent nausea, vomiting, and watery diarrhea. Workup in the ER included blood work and positional blood pressure checks. Your initial blood pressure dropped excessively between lying and standing. You were given 1 L of IV fluid, and this resolved. Your hemoglobin and hematocrit were found to be high. They have been high in the past, but are not always high. This is likely due to intravascular depletion. Your blood glucose was found to be elevated at 149. Reviewing prior medical records, your blood glucose has always been elevated. This indicates that you have a condition called prediabetes, and you may even have real diabetes. Further evaluation by your PCP is necessary. In the meantime, we recommend that you go to the [place] [employer] ( ADA) website, click on the "Food and fitness" tab, then go to "What can I eat", in order to learn about a low glycemic index = diabetes diet. Because of your continued symptoms of acid reflux, we are recommending that you increase your famotidine to one tablet twice a day, for the next 3 days. In addition, a prescription for the proton pump inhibitor esomeprazole (Nexium) has been sent to the [facility], located just south and across the [address] from [facility]. The pharmacy will be open between noon and 4:00 this afternoon. Take one tablet of esomeprazole daily, as prescribed. Follow-up with your Ict Security Specialist, Dr. Arana, and your PCP, Dr. Sparkle Schmidt, at the next available appointment. If any other problems, please do not hesitate to return to the ER. - My Orders Last 24 Hours: My Active Orders 11/19/18 10:07 Orthostatic Vital Signs [RC] STAT 11/19/18 10:09 Orthostatic Vital Signs [RC] STAT - Assessment/Plan Last 24 Hours: My Active Orders 11/19/18 10:07 Orthostatic Vital Signs [RC] STAT 11/19/18 10:09 Orthostatic Vital Signs [RC] STAT
== END 2018-11-19 12:29 | disposition home or self-care (01) ==
LOC: JD.ED 09:14
DX: K52.9 Noninfective gastroenteritis and colitis, unspecified (principal); K21.9 Gastro-esophageal reflux disease without esophagitis; E78.00 Pure hypercholesterolemia, unspecified; I10 Essential (primary) hypertension; J45.909 Unspecified asthma, uncomplicated; Z79.899 Other long term (current) drug therapy
CPT/HCPCS: 36415; 80053; 83735; 85007; 85027; 96361; 96374; 99284; J2765; J7120

== ENCOUNTER 2018-12-15 08:47 | Day surgery (SDC) | payer BC ==
[~2018-12-15 08:47] MED LIST: Lactated Ringers 1,000 ML IV SCH; Lidocaine 1%/Sod Bicarbonate in NS 8.4% 1 ML Syringe IDERM PRN; Sodium Chloride 0.9% 10 ML Syringe FLUSH PRN
[2018-12-15] MEDS ORDERED: Clindamycin Phosphate 900 MG in Sodium Chloride 0.9% 100 ML IV SCH (09:00)
[2018-12-15] MEDS ORDERED: Midazolam 1 MG/ML 2 ML SDV ONE (09:14)
[2018-12-15] MEDS ORDERED: Rocuronium 50 MG/5 ML Vial ONE (09:14)
[2018-12-15] MEDS ORDERED: Propofol 200 MG/20 ML SDV ONE (09:14)
[2018-12-15] MEDS ORDERED: fentaNYL 250 MCG/5 ML SDV ONE (09:14)
[2018-12-15] MEDS ORDERED: ceFAZolin 1 GM Vial ONE (09:14)
[2018-12-15] MEDS ORDERED: Ondansetron 4 MG/2 ML SDV ONE (09:14)
[2018-12-15] MEDS ORDERED: Clindamycin Phosphate 900 MG in Dextrose 5% in Water 100 ML IV SCH ×2 (10:24)
--- NOTE | 2018-12-15 10:43 | PCM.PREANE ---
Preanesthetic Assessment - Anesthesia/Transfusion/Family Hx Anesthesia History: Prior Anesthesia Without Reaction Family History of Anesthesia Reaction: No Transfusion History: No Prior Transfusion(s) - Review of Systems General: Other (bmi 36+) Pulmonary: Other (haley) Cardiovascular: Other (HTN, INCREASED CHOLESTEROL) Gastrointestinal: Other (GERD) Neurological: Other (chronic low back pain) Other: Reports: None - Physical Assessment NPO Status Date: 12/14/18 NPO Status Time: 20:00 Pulse: 70 O2 Sat by Pulse Oximetry: 96 Respiratory Rate: 16 Blood Pressure: 149/104 Vital Signs: Last Vital Signs Temp 36.1 C 12/15/18 09:05 Pulse 70 12/15/18 09:05 Resp 16 12/15/18 09:05 BP 149/104 H 12/15/18 09:05 Pulse Ox 96 12/15/18 09:05 Weight: 115 kg ASA Class: 2 Mental Status: Alert & Oriented x3 Dentition: Reports: Normal Dentition Thyro-Mental Finger Breadths: 3 Mouth Opening Finger Breadths: 3 ROM/Head Extension: Full Lungs: Clear to Auscultation, Normal Respiratory Effort Cardiovascular: Regular Rate, Regular Rhythm - Allergies Allergies/Adverse Reactions: Allergies Allergy/AdvReac Type Severity Reaction Status Date / Time Penicillins Allergy Rash Verified 12/14/18 11:24 - Blood Blood Available: No Product(s) Available: None - Anesthesia Plan Pre-Op Medication Ordered: None - Acknowledgements Anesthesia Type Planned: General Anesthesia Pt an Appropriate Candidate for the Planned Anesthesia: Yes Alternatives and Risks of Anesthesia Discussed w Pt/Guardian: Yes Pt/Guardian Understands and Agrees with Anesthesia Plan: Yes PreAnesthesia Questionnaire HEENT History: Reports: Impaired Vision Other HEENT History: wears corrective lenses, dry eyes Cardiovascular History: Reports: High Cholesterol, Hypertension Other Cardiovascular History: elevated triglycerides Respiratory History: Reports: Asthma, Sleep Apnea Gastrointestinal History: Reports: Colon Polyp, Gastritis, GERD, Other (See Below) Other Gastrointestinal History: Fissure Genitourinary History: Reports: None GENERAL OFFICE ASSOCIATE History: Reports: None Musculoskeletal History: Reports: Back Pain, Chronic, Osteoarthritis, Other ( See Below) Other Musculoskeletal History: right suprapinatus tendinitis, low back pain, left foot/ankle pain, right shoulder impingment, bilateral low back pain, left wrist pain, left arm fracture, bilateral foot surgery Neurological History: Reports: Head Trauma, Neuropathy, Peripheral Psychiatric History: Reports: Other (See Below) Other Psychiatric History: fatigue Endocrine/Metabolic History: Reports: Obesity/BMI 30+, Other (See Below) Hematologic History: Reports: None Immunologic History: Reports: None Oncologic (Cancer) History: Reports: None Dermatologic History: Reports: None - Infectious Disease History Infectious Disease History: Reports: Other (See Below) Other Infectious Disease History: typhoid - Past Surgical History Head Surgeries/Procedures: Reports: None, Other (See Below) HEENT Surgical History: Reports: Oral Surgery, Other (See Below) Other HEENT Surgeries/Procedures: facial surgery-reconstruction Cardiovascular Surgical History: Reports: None Respiratory Surgical History: Reports: None GI Surgical History: Reports: Colonoscopy, EGD, Hernia, Inguinal, Hernia Repair/ Other, Other (See Below) Other GI Surgeries/Procedures: colon surgery Female Surgical History: Reports: None Male Surgical History: Reports: None Endocrine Surgical History: Reports: None Neurological Surgical History: Reports: None Musculoskeletal Surgical History: Reports: ORIF, Other (See Below) Other Musculoskeletal Surgeries/Procedures:: back nerve sx, plantar fasciatis, left broken arm, broken fingers and toes Oncologic Surgical History: Reports: None Dermatological Surgical History: Reports: None - SUBSTANCE USE Smoking Status *Q: Never Smoker Recreational Drug Use History: No - HOME MEDS Home Medications: Home Meds Albuterol Sulfate [Proair Hfa] 1 puff INH ASDIRECTED PRN 04/27/16 [History] Lisinopril 20 mg PO DAILY 04/27/16 [History] Celecoxib 200 mg PO DAILY 11/19/18 [History] Rosuvastatin [Crestor] 5 mg PO DAILY 11/19/18 [History] Betamethasone/Clotrimazole [Lotrisone] 1 dose TOP BID 12/14/18 [History] Cyclobenzaprine [Flexeril] 10 mg PO BEDTIME PRN 12/14/18 [History] Diclofenac Sodium [Voltaren 1% Gel] 1 dose TOP BID 12/14/18 [History] Esomeprazole Magnesium [Nexium] 20 mg PO DAILY 12/14/18 [History] Fish Oil/Wells-3 Fatty Acids [Fish Oil 1,000 MG] 2 gm PO DAILY 12/14/18 [History ] - CURRENT (IN HOUSE) MEDS Current Meds: Current Medications Lactated Ringer's (Ringers, Lactated) 1,000 mls @ 125 mls/hr IV ASDIRECTED MICHAEL Stop: 12/15/18 18:00 Clindamycin Phosphate 900 mg/ (Dextrose/Water) 106 mls @ 212 mls/hr IV ONETIME MICHAEL Stop: 12/15/18 11:00 Last Admin: 12/15/18 10:27 Dose: 212 mls/hr Lidocaine/Sodium Bicarbonate (Buffered Lidocaine 1% In Ns 8.4%) 0.25 ml IDERM ONETIME PRN PRN Reason: Prior to IV Start Stop: 12/15/18 18:00 Sodium Chloride (Saline Flush) 10 ml FLUSH ASDIRECTED PRN PRN Reason: Keep Vein Open Stop: 12/15/18 18:00 Discontinued Medications Cefazolin Sodium (Ancef) Confirm Administered Dose 2 gm .ROUTE .STK-MED ONE Stop: 12/15/18 09:15 Fentanyl (Sublimaze) Confirm Administered Dose 250 mcg .ROUTE .STK-MED ONE Stop: 12/15/18 09:15 Clindamycin Phosphate 900 mg/ (Sodium Chloride) 106 mls @ 100 mls/hr IV ONETIME [facility] Midazolam HCl (Versed 1 Mg/Ml) Confirm Administered Dose 2 mg .ROUTE .STK-MED ONE Stop: 12/15/18 09:15 Ondansetron HCl (Zofran) Confirm Administered Dose 4 mg .ROUTE .STK-MED ONE Stop: 12/15/18 09:15 Propofol (Diprivan 20 Ml) Confirm Administered Dose 200 mg .ROUTE .STK-MED ONE Stop: 12/15/18 09:15 Rocuronium [place] (Zemuron) Confirm Administered Dose 50 mg .ROUTE .STK-MED ONE Stop: 12/15/18 09:15
[2018-12-15] MEDS ORDERED: Scopolamine 1.5 MG Transdermal Patch TRDERM ONE (10:54)
[2018-12-15] MEDS ORDERED: Lidocaine 1% with EPINEPHrine 1:100,000 20 ML MDV ONE (12:56)
[2018-12-15] MEDS ORDERED: diphenhydrAMINE 50 MG/ML SDV IVPUSH PRN (13:32)
[2018-12-15] MEDS ORDERED: Ondansetron 4 MG/2 ML SDV IVPUSH PRN (13:32)
[2018-12-15] MEDS ORDERED: HYDROmorphone 0.5 MG/0.5 ML Syringe IVPUSH PRN (13:32)
[2018-12-15] MEDS ORDERED: fentaNYL 100 MCG/2 ML SDV IVPUSH PRN (13:32)
[2018-12-15] MEDS ORDERED: Neostigmine Methylsulfate 1 MG/ML 5 ML Syringe ONE (13:36)
--- NOTE | 2018-12-15 13:50 | PCM.OPNOTE ---
- General Post-Op/Procedure Note Date of Surgery/Procedure: 12/15/18 Operative Procedure(s): 1. Exploration of abdominal wound. 2. Excision of stitch granuloma Pre Op Diagnosis: Chronic abdominal wound Post-Op Diagnosis: Stitch granuloma Anesthesia Technique: General ET Tube Primary Surgeon: Arlene Bianchi Anesthesia Provider: Sangeetha Epperson Pathology: None Fluid Replacement, Intraop: 1,400 Output, Urine Amount: 0 EBL in mLs: 1 Complications: None apparent Condition: Good
--- NOTE | 2018-12-15 13:56 | PCM.POSTAN ---
POST ANESTHESIA ASSESSMENT - MENTAL STATUS Mental Status: Alert, Oriented - VITAL SIGNS Pulse Rate: 115 SaO2: 93 Resp Rate: 20 Blood Pressure: 141/96 Temperature: 36.6 C - RESPIRATORY Respiratory Status: Respiratory Rate WNL, Airway Patent, O2 Saturation Stable, Supplemental Oxygen - CARDIOVASCULAR CV Status: Pulse Rate WNL, Blood Pressure Stable - GASTROINTESTINAL GI Status: No Symptoms - PAIN Pain Score: 0 - POST OP HYDRATION Hydration Status: Adequate & Stable
--- NOTE | 2018-12-15 13:58 | PCM48HPAN ---
Post Anesthesia Note - EVALUATION WITHIN 48HRS OF ANESTHETIC Vital Signs in Normal Range: Yes Patient Participated in Evaluation: Yes Respiratory Function Stable: Yes Airway Patent: Yes Cardiovascular Function Stable: Yes Hydration Status Stable: Yes Pain Control Satisfactory: Yes Nausea and Vomiting Control Satisfactory: Yes Mental Status Recovered: Yes Pulse Rate: 80 SaO2: 96 Resp Rate: 20 Temperature: 36.6 C Blood Pressure: 141/96
--- NOTE | 2018-12-15 13:59 | PCM.PRNOTE ---
- Free Text/Narrative Note: Operative Report Date of surgery: December 15 2018 Preoperative diagnosis: Chronic abdominal wound Postoperative diagnosis: Stitch granuloma Procedure: 1. Exploration of abdominal wound 2. Excision of stitch granuloma Surgeon: Dr. Arlene Bianchi Anesthesia: General ET Polysomnography Tech: Sangeetha Epperson CRNA Estimated blood loss: 1 mL IV fluids: 1400 mL Urine output: 0 mL Drains and lines: None Findings: Stitch granuloma in midline wound Pathology: None Indication for the procedure: . The patient is a 58-year-old male presented to my office complaining of a chronic wound of approximately 4-5 years after his umbilical hernia repair. He was treated with topical silver nitrate, which should improve the wound but did not heal it. He continued to have scant clear drainage daily. Preoperative CT scan did not reveal any evidence of abscess. He was consented for exploration of the abdominal wound with possible excision of stitch versus excision of mesh if there appeared to be any mesh infection. His written consent was obtained after discussion of risks of bleeding, infection and possible injury to surrounding structures. Description of the procedure: The patient was taken to the operating room and placed in supine position on the operating table. His SCD boots were placed and functional prior to start of the procedure. He had administration of preoperative antibiotics 900 mg clindamycin as per SCI P protocol. He had successful induction of general anesthesia and was intubated without difficulty. He was then prepped and draped in standard surgical fashion and a surgical timeout was performed. We began by injecting local anesthetic of 1% lidocaine with epinephrine at the base of the umbilicus. A 15 blade scalpel is then used to make a vertical incision at the base of the umbilicus overlying the area of the granulomatous tissue. We then proceeded to sharply excise a small amount of skin and the granuloma tissue. We then encountered suture which appeared to be Prolene from the previous surgery. This was removed. We then proceeded to explore the area. The starting structure and underlying mesh seemed to be intact. There is no evidence of infection or purulent drainage. An additional stitch was noted in the wound and this was removed. The granulation tissue was then desiccated using the Bovie device. The deep tissue was reapproximated using a 3 -0 Vicryl suture and the incision was closed with yuan. A dry dressing was applied. The patient tolerated the procedure well. There were no immediate complications. He was extubated and transported to PACU in stable condition. Arlene Bianchi MD General Surgery
[2018-12-15 14:57] VITALS: BP 124/79
== END 2018-12-15 15:00 | disposition home or self-care (01) ==
LOC: JD.SDS 08:47
PROVIDERS: ATTEND Surgery
DX: T81.89XA Other complications of procedures, not elsewhere classified, initial encounter (principal); I10 Essential (primary) hypertension; E66.9 Obesity, unspecified; J45.909 Unspecified asthma, uncomplicated; E78.00 Pure hypercholesterolemia, unspecified; K21.9 Gastro-esophageal reflux disease without esophagitis; E78.1 Pure hyperglyceridemia; G47.33 Obstructive sleep apnea (adult) (pediatric); Z88.0 Allergy status to penicillin
CPT/HCPCS: 10121; 93005; A9270; J0690; J2250; J2405; J2704; J2710; J3010; J3490; J7060; J7120

== ENCOUNTER 2021-03-24 11:04 | Emergency (ER) | payer BC ==
[2021-03-24 11:16] VITALS: BP 140/97; PULSE 70
--- NOTE | 2021-03-24 11:18 | EDM.PDOC ---
ED HPI GENERAL MEDICAL PROBLEM - General Chief Complaint: Gastrointestinal Problem Stated Complaint: VOMITING/DIARRHEA/HEADACHE Time Seen by Provider: 03/24/21 11:18 Source of Information: Reports: Patient History Limitations: Reports: No Limitations - History of Present Illness INITIAL COMMENTS - FREE TEXT/NARRATIVE: 60-year-old male presents to the ED with acute onset of nausea vomiting and diarrhea starting about 0330 hrs. this morning. He does not believe that he got into any bad food. He states that he has similar attacks like this every once in a while for no good reason. Been going on for years. He has been investigated at the [facility] with no positive findings. Only previous abdominal surgery is that of a repair of an umbilical hernia. At present he is complaining of diffuse mid abdominal pain from epigastrium to pubic symphysis. Associated strong colicky component of pain prior to diarrhea. There is no hematemesis or hematochezia. Diarrhea is yellowish in color and mostly water. Emesis now is just dry heaves. He went to bed feeling perfectly fine. He has had some chills but no defined fever. He does not drink much alcohol very often. No recent alcohol use. No past history of pancreatitis. He denies smoking marijuana. He knows that he is lactose intolerant. Onset: Today, Sudden Onset Date: 03/24/21 Onset Time: 03:30 Duration: Hour(s):, Constant, Waxing/Waning Location: Reports: Abdomen (Diffuse abdominal cramping pain primarily periumbilical rating up into the epigastrium associate with nausea vomiting and diarrhea) Quality: Reports: Ache (Deep aching discomfort central) Severity: Moderate (mid epigastrium and periumbilical.) Improves with: Reports: None ( 7-8 out of 10.) Worsens with: Reports: Other Context: Reports: Other (Spontaneous occurrence.). Denies: Activity, Exercise (Trying to drink or eat makes things worse.), Lifting, Sick Contact, Trauma Associated Symptoms: Reports: Fever/Chills, Headaches, Loss of Appetite, Malaise, Weakness (Chills but no fever.). Denies: Confusion, Chest Pain, Cough, cough w sputum, Diaphoresis, Nausea/Vomiting, Rash, Seizure, Shortness of Breath, Syncope Treatments RN REHABILITATION: Reports: Other Medication(s) Abdomen Pain Score (Numeric/FACES): 8 - Related Data Allergies Allergy/AdvReac Type Severity Reaction Status Date / Time Penicillins Allergy Rash Verified 03/24/21 11:31 Home Meds: Home Meds Albuterol Sulfate [Proair Hfa] 1 puff INH ASDIRECTED PRN 04/27/16 [History] Lisinopril 20 mg PO DAILY 04/27/16 [History] Rosuvastatin [Crestor] 5 mg PO DAILY 11/19/18 [History] Dicyclomine [Bentyl] 20 mg PO Q6H PRN #12 tablet 03/24/21 [Rx] Fenofibrate 160 mg PO DAILY 03/24/21 [History] Folic Acid 1 mg PO DAILY 03/24/21 [History] Hydroxychloroquine [Plaquenil] 400 mg PO ASDIRECTED 03/24/21 [History] Meclizine [Antivert] 12.5 mg PO TID PRN 03/24/21 [History] Methotrexate Sodium/PF [Methotrexate 25 mg/ml Vial] 25 mg IM WEEKLY 03/24/21 [History] Metoclopramide HCl [Reglan] 10 mg PO Q6H PRN #10 tablet 03/24/21 [Rx] Ondansetron [Zofran ODT] 4 mg PO Q6H PRN 03/24/21 [History] Pregabalin 100 mg PO TID 03/24/21 [History] predniSONE [Prednisone] 5 mg PO DAILY PRN 03/24/21 [History] sulfaSALAzine [Sulfazine] 500 mg PO BID 03/24/21 [History] Past Medical History HEENT History: Reports: Impaired Vision Other HEENT History: wears corrective lenses, dry eyes Cardiovascular History: Reports: High Cholesterol, Hypertension Other Cardiovascular History: elevated triglycerides Respiratory History: Reports: Asthma, Sleep Apnea Gastrointestinal History: Reports: Colon Polyp, Gastritis, GERD, Other (See Below) Other Gastrointestinal History: Past history of anal fissure. Genitourinary History: Reports: None SHANK BONER History: Reports: None Musculoskeletal History: Reports: Back Pain, Chronic, Osteoarthritis, RA, Other (See Below) Other Musculoskeletal History: right suprapinatus tendinitis, low back pain, left foot/ankle pain, right shoulder impingment, bilateral low back pain, left wrist pain, left arm fracture, bilateral foot surgery Neurological History: Reports: Head Trauma, Neuropathy, Peripheral Psychiatric History: Reports: Other (See Below) Other Psychiatric History: fatigue Endocrine/Metabolic History: Reports: Obesity/BMI 30+, Other (See Below) Hematologic History: Reports: None Immunologic History: Reports: None Oncologic (Cancer) History: Reports: None Dermatologic History: Reports: None - Infectious Disease History Infectious Disease History: Reports: Other (See Below) Other Infectious Disease History: typhoid - Past Surgical History Head Surgeries/Procedures: Reports: None, Other (See Below) HEENT Surgical History: Reports: Oral Surgery, Other (See Below) Other HEENT Surgeries/Procedures: facial surgery-reconstruction Cardiovascular Surgical History: Reports: None Respiratory Surgical History: Reports: None GI Surgical History: Reports: Colonoscopy, EGD, Hernia, Inguinal, Hernia Repair/Other, Other (See Below) Other GI Surgeries/Procedures: colon surgery Female Surgical History: Reports: None Male Surgical History: Reports: None Endocrine Surgical History: Reports: None Neurological Surgical History: Reports: None Musculoskeletal Surgical History: Reports: ORIF, Other (See Below) Other Musculoskeletal Surgeries/Procedures:: back nerve sx, plantar fasciatis, left broken arm, broken fingers and toes Oncologic Surgical History: Reports: None Dermatological Surgical History: Reports: None Social & Family History - Family History Family Medical History: No Pertinent Family History Neurological: Reports: Alzheimers Disease, CVA, Dementia Other Neurological Family History: mom and dad - Caffeine Use Caffeine Use: Reports: Coffee - Living Situation & Occupation Living situation: Reports: , with Spouse 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 Denies: Fever HEENT: Reports: Glasses Respiratory: Reports: No Symptoms Cardiovascular: Reports: Blood Pressure Problem. Denies: Chest Pain, Claudication, Dyspnea on Exertion, Edema, Lightheadedness, Orthopnea, Palpitations Endocrine: Reports: Fatigue GI/Abdominal: Reports: Abdominal Pain (Periumbilical pain rating up into the epigastrium and occasionally into the left lower quadrant of the abdomen as well.), Diarrhea (Multiple diarrhea stools he estimates between 5 and 10 mostly yellow watery), Nausea, Vomiting (Recurrent nausea and vomiting since 0330 hrs. this morning. Now just dry heaves.). Denies: Hematemesis, Hematochezia : Reports: Frequency, Other (Nocturia usually x2. Known BPH.) Musculoskeletal: Reports: Joint Pain (Knees hips low back neck shoulders and feet.) Skin: Reports: No Symptoms Neurological: Reports: Dizziness (Day.), Numbness (Peripheral neuropathy both feet.), Tingling, Difficulty Walking, Gait Disturbance Psychiatric: Reports: No Symptoms Hematologic/Lymphatic: Reports: No Symptoms Immunologic: Reports: No Symptoms ED EXAM, GI/ABD - Physical Exam Exam: See Below Exam Limited By: No Limitations General Appearance: Alert, WD/WN, Mild Distress, Other (Afebrile. Temp is 36.1. Heart rate is 70 and sinus. Respiratory is 14 with O2 sats of 96% room air. BP 140/97) Eyes: Bilateral: Normal Appearance (No blepharal pallor or scleral icterus.) Throat/Mouth: Normal Inspection, Normal Oropharynx, Other Head: Atraumatic, Normocephalic Neck: Normal Inspection, Supple, Non-Tender, Full Range of Motion. No: Carotid Bruit, Lymphadenopathy (L), Lymphadenopathy (R) Respiratory/Chest: No Respiratory Distress, Lungs Clear, Normal Breath Sounds, No Accessory Muscle Use Cardiovascular: Normal Peripheral Pulses, Regular Rate, Rhythm, No Edema, No Gallop, No Murmur, No Rub GI/Abdominal Exam: Soft, No Organomegaly, No Mass, Pelvis Stable, Tender (Tenderness primarily epigastrium and left lower quadrant of the abdomen.), Abnormal Bowel Sounds (Bowel sounds are), Other (Evidence of previous umbilical hernia raphe). No: Normal Bowel Sounds, Non-Tender, Distended ( slightly hyperactive in all 4 quadrants.), Guarding, Rigid, Rebound Back Exam: Normal Inspection, Full Range of Motion, Decreased Range of Motion, Paraspinal Tenderness (Along both sides of the). No: CVA Tenderness (L), CVA Tenderness (R) Extremities: Normal Inspection ( lumbar spine), Normal Range of Motion, Non- Tender, No Pedal Edema Neurological: Alert, Oriented, CN II-XII Intact, Normal Cognition Psychiatric: Normal Affect, Normal Mood Skin Exam: Warm, Dry, Intact, Normal Color, No Rash Course - Vital Signs Last Recorded V/S: Last Vital Signs Temp 36.1 C 03/24/21 11:12 Pulse 70 06/22/21 11:12 Resp 14 03/24/21 11:12 BP 140/97 H 03/24/21 11:12 Pulse Ox 96 03/24/21 11:12 - Orders/Labs/Meds Orders: Active Orders 24 hr Category Date Time Status Dextrose 5%-Lactated Ringers 1,000 ml Med 03/24/21 11:30 Active IV ASDIRECTED Medication Orders Dextrose/Lactated Ringer's (Dextrose 5%-Lactated Ringers) 1,000 mls @ 999 mls/hr IV ASDIRECTED MICHAEL Last Admin: 03/24/21 11:49 Dose: 999 mls/hr Documented by: HILARY Labs: Laboratory Tests 03/24/21 03/24/21 Range/Units 11:50 11:50 WBC 11.32 H (4.23-9.07) K/mm3 RBC 5.25 (4.63-6.08) M/mm3 Hgb 17.0 D (13.7-17.5) gm/dl Hct 48.9 (40.1-51.0) % MCV 93.1 H D (79.0-92.2) fl MCH 32.4 H (25.7-32.2) pg MCHC 34.8 (32.2-35.5) g/dl RDW Std Deviation 47.7 H (35.1-43.9) fL Plt Count 191 D (163-337) K/mm3 MPV 9.7 (9.4-12.3) fl Neut % (Auto) 80.3 H (34.0-67.9) % Lymph % (Auto) 11.0 L (21.8-53.1) % [place] % (Auto) 7.2 (5.3-12.2) % Eos % (Auto) 1.0 (0.8-7.0) Baso % (Auto) 0.1 (0.1-1.2) % Neut # (Auto) 9.10 H (1.78-5.38) K/mm3 Lymph # (Auto) 1.24 L (1.32-3.57) K/mm3 [place] # (Auto) 0.82 (0.30-0.82) K/mm3 Eos # (Auto) 0.11 (0.04-0.54) K/mm3 Baso # (Auto) 0.01 (0.01-0.08) K/mm3 Manual Slide Review Normal smear Sodium 138 (136-145) mEq/L Potassium 4.4 (3.5-5.1) mEq/L Chloride 103 (98-107) mEq/L Carbon Dioxide 22 (21-32) mEq/L Anion Gap 17.4 H (5-15) BUN 19 H (7-18) mg/dL Creatinine 1.0 (0.7-1.3) mg/dL Est Cr Clr Drug Dosing 84.71 mL/min Estimated GFR (MDRD) > 60 (>60) mL/min BUN/Creatinine Ratio 19.0 H (14-18) Glucose 108 H (70-99) mg/dL Calcium 8.6 (8.5-10.1) mg/dL Magnesium 1.9 (1.8-2.4) mg/dL Total Bilirubin 0.5 (0.2-1.0) mg/dL AST 22 (15-37) U/L ALT 30 (16-63) U/L Alkaline Phosphatase 70 (46-116) U/L C-Reactive Protein < 0.2 (<1.0) mg/dL Total Protein 7.3 (6.4-8.2) g/dl Albumin 3.9 (3.4-5.0) g/dl Globulin 3.4 gm/dL Albumin/Globulin Ratio 1.2 (1-2) Lipase 146 (73-393) U/L Meds: Medications Generic Name Dose Route Start Last Admin Trade Name Freq PRN Reason Stop Dose Admin Dextrose/Lactated Ringer's 1,000 mls @ 999 mls/hr 03/24/21 11:30 03/24/21 11:49 Dextrose 5%-Lactated Ringers IV 999 mls/hr ASDIRECTED MICHAEL Administration Discontinued Medications Generic Name Dose Route Start Last Admin Trade Name Freq PRN Reason Stop Dose Admin Hydromorphone HCl 1 mg 03/24/21 11:24 03/24/21 11:49 Hydromorphone 1 Mg/Ml Syringe IVPUSH 03/24/21 11:25 1 mg ONETIME ONE Administration Metoclopramide HCl 10 mg 03/24/21 11:24 03/24/21 11:49 Metoclopramide 10 Mg/2 Ml Sdv IVPUSH 03/24/21 11:25 10 mg ONETIME ONE Administration - Radiology Interpretation Free Text/Narrative:: 60-year-old male presents to the ED with an acute onset of nausea vomiting and diarrhea starting about 0330 hrs. this morning. Associated headache. No defined fever but has had some chills. Unable to keep anything down. He reports intermittently he gets 1 of these spells where he developed sudden onset of nausea vomiting diarrhea for which no definitive diagnosis is ever been ma de. He rarely drinks alcohol. He believes he has had 1 bout of pancreatitis. No recent alcohol use. Examination reveals him to be afebrile. Lungs are clear heart was sinus and normal. Bowel sounds slightly hyperactive in all 4 quadrants. Soft palpation with no organomegaly or masses palpable tenderness primarily periumbilical and epigastrium without guarding or rebound. Plan 1 view of the abdomen to be done. IV will be D5 Ringer's lactate at open. Given Dilaudid 1 mg IV with Reglan 10 mg IV to relieve pain and nausea. Urinalysis when 1 becomes available. - Re-Assessments/Exams Free Text/Narrative Re-Assessment/Exam: 03/24/21 12:09 KUB is essentially normal. Bowel gas pattern is within normal limits with no signs of bowel obstruction. No abnormal calcifications. Patient states he is feeling much improved. Nausea is gone and the abdominal pain is completely relieved as well. Labs are pending. 03/24/21 12:51 Labs reveal a mildly elevated white count at 11.32 with 80% neutrophils on the auto differential. Hemoglobin is 17.0 with hematocrit of 48.9 suggesting a degree of hemoconcentration. MCV is mildly elevated at 93.1. Platelet count 191,000. Sodium 138 with a potassium of 4.4. Chloride 103 with a bicarb of 22. Anion gap elevated at 17.4. BUN is 19 with a creatinine of 1.0. GFR is greater than 60. BUN/creatinine ratio was 19.0 mildly elevated. Glucose 108. Calcium 8.6. Magnesium 1.9. Liver function normal C-reactive protein less than 0.2. Total protein 7.3 with an albumin fraction of 3.9 serum lipase is normal at 146. 03/24/21 13:04 patient continues to feel much improved. He has about 10 minutes list of his IV infusion. He will be discharged to home with a prescription for Reglan 10 mg tablets to be used 1 every 6 hours as needed for nausea relief. He has Zofran at home but they rarely work for this type of pain and vomiting. I have also given a prescription for Bentyl 20 mg tablets to have on hand 1 tablet every 6 hours as needed for relief of abdominal cramping pain. He will continue to hydrate himself with Gatorade/Powerade today. Clear fluid diet Departure - Departure Time of Disposition: 13:42 Disposition: Home, Self-Care 01 Condition: Fair Clinical Impression: Intractable nausea and vomiting, Dehydration, moderate Diarrhea Qualifiers: Diarrhea type: unspecified type Qualified Code(s): R19.7 - Diarrhea, unspecified - Discharge Information *PRESCRIPTION DRUG MONITORING PROGRAM REVIEWED*: Not Applicable *COPY OF PRESCRIPTION DRUG MONITORING REPORT IN PATIENT MARK: Not Applicable Prescriptions: Dicyclomine [Bentyl] 20 mg PO Q6H PRN #12 tablet PRN Reason: Abdominal cramps/diarrhea Metoclopramide HCl [Reglan] 10 mg PO Q6H PRN #10 tablet PRN Reason: Nausea and vomiting Instructions: Diarrhea, Adult, Dehydration, Adult, [id number], Nausea and Vomiting, Adult Referrals: Sparkle Schmidt MD [Primary Care Provider] - Forms: ED Department Discharge Additional Instructions: Evaluation in the emergency room today in regards to recurrent bouts of intractable nausea and vomiting associate with abdominal pain and diarrhea development. Lab test did not show any signs of an infective process. They did not show any signs of pancreatitis or abnormalities of the liver or gallbladder. X-ray of the abdomen was normal. No sign of bowel obstruction. Lab test did reveal mild to moderate dehydration. You were therefore given a full liter of IV fluids to provide rehydration. Nausea was treated with Reglan 10 mg IV and pain relief with Dilaudid 1 mg IV. Suggest clear fluid diet the remainder today. Particularly sipping on Gatorade or Powerade to maintain hydration. When hungry try soda crackers first. If tolerated may advance to jam on white bread. After this may advance to turkey rice or chicken noodle soup. Hopefully able to eat resume normal diet tomorrow. Avoid all dairy products until stools are formed back up. Also avoid any apple juice or grape juice until stools are formed back up. May use Reglan 10 mg tablet at about 1700 hrs. today to hopefully prevent any further nausea or vomiting today. May use Bentyl 20 mg every 6 hours as needed for relief of abdominal cramping pain. Of course return to the hospital if it anytime medication is not effective and you continue to have nausea or vomiting. Sepsis Event Note (ED) - Evaluation Sepsis Screening Result: No Definite Risk - Focused Exam Vital Signs: Vital Signs Temp Pulse Resp BP Pulse Ox 03/24/21 11:12 36.1 C 70 14 140/97 H 96 - My Orders Last 24 Hours: My Active Orders 03/24/21 11:30 Dextrose 5%-Lactated Ringers 1,000 ml IV ASDIRECTED - Assessment/Plan Last 24 Hours: My Active Orders 03/24/21 11:30 Dextrose 5%-Lactated Ringers 1,000 ml IV ASDIRECTED
[2021-03-24] MEDS ORDERED: HYDROmorphone 1 MG/ML Syringe IVPUSH ONE (11:24)
[2021-03-24] MEDS ORDERED: Metoclopramide 10 MG/2 ML SDV IVPUSH ONE (11:24)
[2021-03-24] MEDS ORDERED: Dextrose 5%-Lactated Ringers 1,000 ML IV SCH (11:30)
--- NOTE | 2021-03-24 11:58 | CR ---
Abdomen: Supine view of the abdomen was obtained. Comparison: Prior abdominal x-ray of 10/09/17. Bowel gas pattern appears normal. No abnormal calcifications or discrete soft tissue abnormality is seen. Scattered degenerative endplate spurring is noted within the spine. Impression: 1. Findings as noted above. 2. Nothing acute is appreciated on supine abdominal x-ray. Diagnostic code #2
== END 2021-03-24 13:25 | disposition home or self-care (01) ==
LOC: JD.ED 11:04
DX: E86.0 Dehydration (principal); R11.2 Nausea with vomiting, unspecified; R19.7 Diarrhea, unspecified; E78.00 Pure hypercholesterolemia, unspecified; I10 Essential (primary) hypertension; J45.909 Unspecified asthma, uncomplicated; E66.9 Obesity, unspecified; Z68.36 Body mass index [BMI] 36.0-36.9, adult; Z88.0 Allergy status to penicillin
CPT/HCPCS: 36415; 74018; 80053; 83690; 83735; 85025; 86140; 96374; 96375; 99284; J1170; J2765; J7121; 99283

== ENCOUNTER 2021-10-01 08:41 | Emergency (ER) | payer BC ==
[2021-10-01 08:55] VITALS: BP 133/97; PULSE 87
--- NOTE | 2021-10-01 09:03 | EDM.PDOC ---
ED HPI GENERAL MEDICAL PROBLEM - General Chief Complaint: Gastrointestinal Problem Stated Complaint: VOMITTING,STOMACH CRAMPS,HEADACHE Time Seen by Provider: 10/01/21 09:03 Source of Information: Reports: Patient History Limitations: Reports: No Limitations - History of Present Illness INITIAL COMMENTS - FREE TEXT/NARRATIVE: 61-year-old male presents to the ED in accompaniment of his . He states that he developed nausea about 2000 hrs. last evening followed shortly thereafter by vomiting. He estimates he vomited 4 times overnight. Abdominal cramping pain started around 0800 hrs. this morning with mild diarrhea. He was followed by 2 formed stools. No reported blood in the emesis or diarrhea. States this happens to him intermittently. Improved since he started to follow a lactose-free diet. Feels mildly weak and tired. Can get much sleep due to being up every few hours to vomit. Does not believe he came in contact with any bad food such as eating out. No one else at home is ill as well although his did not feel well last night. Continues to have mild periumbilical abdominal cramping pain. Only past history is that of an umbilical hernia repai r. Patient has rheumatoid arthritis and is currently taking his methotrexate once weekly by injection on Tuesdays. Usually does not have a reaction to this medication Onset: Sudden Onset Date: 09/30/21 Onset Time: 20:00 Duration: Hour(s): Location: Reports: Abdomen (Periumbilical abdominal cramping pain associate with nausea vomiting diarrhea) Quality: Reports: Other Severity: Moderate (Nausea and diarrhea) Improves with: Reports: None Worsens with: Reports: None Context: Denies: Activity, Exercise, Lifting, Sick Contact, Trauma, Other Associated Symptoms: Reports: Loss of Appetite, Malaise, Nausea/Vomiting, Weakness, Other (Fatigue). Denies: Confusion, Chest Pain, Cough, cough w sputum, Diaphoresis, Fever/Chills, Headaches, Rash, Seizure, Shortness of Breath, Syncope Treatments HUMAN PROJECTILE: Reports: Other (see below) (None.) Frontal Headache Pain Score (Numeric/FACES): 7 - Related Data Allergies Allergy/AdvReac Type Severity Reaction Status Date / Time Penicillins Allergy Rash Verified 10/01/21 08:55 Home Meds: Home Meds Albuterol Sulfate [Proair Hfa] 1 puff INH ASDIRECTED PRN 04/27/16 [History] Lisinopril 20 mg PO DAILY 04/27/16 [History] Rosuvastatin [Crestor] 5 mg PO DAILY 11/19/18 [History] Folic Acid 4 mg PO DAILY 03/24/21 [History] Hydroxychloroquine [Plaquenil] 400 mg PO ASDIRECTED 03/24/21 [History] Methotrexate Sodium/PF [Methotrexate 25 mg/ml Vial] 25 mg IM WEEKLY 03/24/21 [History] Pregabalin 200 mg PO BID 03/24/21 [History] sulfaSALAzine [Sulfazine] 500 mg PO BID 03/24/21 [History] Dicyclomine [Bentyl] 20 mg PO Q6H PRN #8 tablet 10/01/21 [Rx] Metoclopramide HCl [Reglan] 10 mg PO Q6H PRN #6 tablet 10/01/21 [Rx] Ondansetron [Zofran] 4 mg BUCCAL Q6H PRN #10 tab 10/01/21 [Rx] Past Medical History HEENT History: Reports: Impaired Vision Other HEENT History: wears corrective lenses, dry eyes Cardiovascular History: Reports: High Cholesterol, Hypertension Other Cardiovascular History: elevated triglycerides Respiratory History: Reports: Asthma, Sleep Apnea Gastrointestinal History: Reports: Colon Polyp, Gastritis, GERD, Other (See Below) Other Gastrointestinal History: Past history of anal fissure. Genitourinary History: Reports: None GANG INVESTIGATOR History: Reports: None Musculoskeletal History: Reports: Back Pain, Chronic, Osteoarthritis, RA, Other (See Below) Other Musculoskeletal History: right suprapinatus tendinitis, low back pain, left foot/ankle pain, right shoulder impingment, bilateral low back pain, left wrist pain, left arm fracture, bilateral foot surgery Neurological History: Reports: Head Trauma, Neuropathy, Peripheral Psychiatric History: Reports: Other (See Below) Other Psychiatric History: fatigue Endocrine/Metabolic History: Reports: Obesity/BMI 30+, Other (See Below) Other Endocrine/Metabolic History: prediabetes Hematologic History: Reports: None Immunologic History: Reports: None Oncologic (Cancer) History: Reports: None Dermatologic History: Reports: None - Infectious Disease History Infectious Disease History: Reports: Influenza, Mononucleosis, Novel Coronavirus, Other (See Below) Other Infectious Disease History: typhoid - Past Surgical History Head Surgeries/Procedures: Reports: Other (See Below) HEENT Surgical History: Reports: Oral Surgery, Other (See Below) Other HEENT Surgeries/Procedures: facial surgery-reconstruction Cardiovascular Surgical History: Reports: None Respiratory Surgical History: Reports: None GI Surgical History: Reports: Colonoscopy, EGD, Hernia, Inguinal, Hernia Repair/Other, Other (See Below) Other GI Surgeries/Procedures: colon surgery Male Surgical History: Reports: None Endocrine Surgical History: Reports: None Neurological Surgical History: Reports: None Musculoskeletal Surgical History: Reports: ORIF, Other (See Below) Other Musculoskeletal Surgeries/Procedures:: back nerve sx, plantar fasciatis, left broken arm, broken fingers and toes Oncologic Surgical History: Reports: None Dermatological Surgical History: Reports: None Social & Family History - Family History Family Medical History: No Pertinent Family History Neurological: Reports: Alzheimers Disease, CVA, Dementia Other Neurological Family History: mom and dad - Tobacco Use Tobacco Use Status *Q: Never Tobacco User Second Hand Smoke Exposure: No - Caffeine Use Caffeine Use: Reports: Coffee - Recreational Drug Use Recreational Drug Use: No - Living Situation & Occupation Living situation: Reports: , with Spouse Occupation: Employed ([employer]) ED ROS GENERAL - Review of Systems Review Of Systems: See Below Constitutional: Reports: Malaise, Weakness, Fatigue (From not sleeping much last night.), Decreased Appetite. Denies: Fever, Chills HEENT: Reports: Glasses Respiratory: Reports: No Symptoms Cardiovascular: Reports: No Symptoms, Blood Pressure Problem. Denies: Chest Pain, Claudication, Dyspnea on Exertion, Syncope, Other Endocrine: Reports: Fatigue GI/Abdominal: Reports: Abdominal Pain (Recurrent abdominal cramping pain mostly periumbilical), Diarrhea (See history of present illness), Decreased Appetite, Nausea, Vomiting. Denies: Anorexia ( and across both lower quadrants.), Black Stool, Bloody Stool, Constipation, Difficulty Swallowing, Distension, Flatus, Hematemesis : Reports: Frequency, Other Musculoskeletal: Reports: Joint Pain (Nocturia x1), Other (Rheumatoid arthritis primarily affecting his hands toes and knees.) Skin: Reports: No Symptoms ( knees hips low back neck at times) Neurological: Reports: No Symptoms Psychiatric: Reports: No Symptoms Hematologic/Lymphatic: Reports: No Symptoms Immunologic: Reports: No Symptoms ED EXAM, GI/ABD - Physical Exam Exam: See Below Exam Limited By: No Limitations General Appearance: Alert, WD/WN, Anxious, Other (Temperature is 36.2 degrees with a heart rate of 87 and sinus. Respiratory to 16 with O2 sats of 94% on room air. BP 1 3397) Eyes: Bilateral: Normal Appearance (No blepharal pallor or scleral icterus.) Throat/Mouth: Other Head: Atraumatic (Tongue is mildly dry and coated. Oropharynx normal), Normocephalic Neck: Normal Inspection, Supple, Non-Tender, Full Range of Motion. No: Carotid Bruit, Lymphadenopathy (L), Lymphadenopathy (R), Tender Lateral Respiratory/Chest: No Respiratory Distress, Lungs Clear, Normal Breath Sounds, No Accessory Muscle Use. No: Decreased Breath Sounds, Rales, Retractions Cardiovascular: Normal Peripheral Pulses, Regular Rate, Rhythm, No Edema, No Gallop, No JVD, No Rub GI/Abdominal Exam: Normal Bowel Sounds, Soft, No Organomegaly, No Distention, Tender (Minimal abdominal tenderness left lower quadrant of the abdomen. No rebound or guarding). No: Guarding, Rigid, Rebound Back Exam: Normal Inspection, Full Range of Motion, Other (Increased lumbar lordosis.). No: CVA Tenderness (L), CVA Tenderness (R) Extremities: Normal Inspection, Normal Range of Motion, Non-Tender, No Pedal Edema Neurological: Alert, Oriented, CN II-XII Intact, Normal Cognition Psychiatric: Anxious Skin Exam: Warm, Dry, Intact, Normal Color, No Rash Course - Vital Signs Last Recorded V/S: Last Vital Signs Temp 36.2 C 10/01/21 08:53 Pulse 87 10/01/21 08:53 Resp 16 10/01/21 08:53 BP 133/97 H 10/01/21 08:53 Pulse Ox 94 L 10/01/21 08:53 - Orders/Labs/Meds Orders: Active Orders 24 hr Category Date Time Status Dextrose 5%-0.9% NaCl [Dextrose 5%-Normal Saline] 1,000 Med 10/01/21 09:15 Active ml IV ASDIRECTED Medication Orders Dextrose/Sodium Chloride (Dextrose 5%-Normal Saline) 1,000 mls @ 999 mls/hr IV ASDIRECTED ON LICENSE OF [facility] Last Admin: 10/01/21 09:31 Dose: 999 mls/hr Documented by: [facility] Labs: Laboratory Tests 10/01/21 10/01/21 Range/Units 09:30 09:30 WBC 8.36 (4.23-9.07) K/mm3 RBC 5.28 (4.63-6.08) M/mm3 Hgb 17.3 (13.7-17.5) gm/dl Hct 49.8 (40.1-51.0) % MCV 94.3 H (79.0-92.2) fl MCH 32.8 H (25.7-32.2) pg MCHC 34.7 (32.2-35.5) g/dl RDW Std Deviation 50.2 H (35.1-43.9) fL Plt Count 269 D (163-337) K/mm3 MPV 9.2 L (9.4-12.3) fl Neutrophils % (Manual) 74 H (40-60) % Band Neutrophils % 0 (0-10) % Lymphocytes % (Manual) 18 L (20-40) % Atypical Lymphs % 0 % Monocytes % (Manual) 7 (2-10) % Eosinophils % (Manual) 1 (0.8-7.0) % Basophils % (Manual) 0 L (0.2-1.2) Platelet Estimate Adequate RBC Morph Comment Normal Sodium 140 (136-145) mEq/L Potassium 4.5 (3.5-5.1) mEq/L Chloride 104 (98-107) mEq/L Carbon Dioxide 22 (21-32) mEq/L Anion Gap 18.5 H (5-15) BUN 15 (7-18) mg/dL Creatinine 1.0 (0.7-1.3) mg/dL Est Cr Clr Drug Dosing 86.22 mL/min Estimated GFR (MDRD) > 60 (>60) mL/min BUN/Creatinine Ratio 15.0 (14-18) Glucose 124 H (70-99) mg/dL Calcium 8.4 L (8.5-10.1) mg/dL Total Bilirubin 0.5 (0.2-1.0) mg/dL AST 39 H (15-37) U/L ALT 69 H (16-63) U/L Alkaline Phosphatase 65 (46-116) U/L C-Reactive Protein <0.2 (<1.0) mg/dL Total Protein 7.0 (6.4-8.2) g/dl Albumin 3.8 (3.4-5.0) g/dl Globulin 3.2 gm/dL Albumin/Globulin Ratio 1.2 (1-2) Meds: Medications Generic Name Dose Route Start Last Admin Trade Name Sarahi PRN Reason Stop Dose Admin Dextrose/Sodium Chloride 1,000 mls @ 999 mls/hr 10/01/21 09:15 10/01/21 09:31 Dextrose 5%-Normal Saline IV 999 mls/hr ASDIRECTED MICHAEL Administration Discontinued Medications Generic Name Dose Route Start Last Admin Trade Name Sarahi PRN Reason Stop Dose Admin Hydromorphone HCl 0.5 mg 10/01/21 09:10 10/01/21 09:32 Hydromorphone 0.5 Mg/0.5 Ml Syringe IVPUSH 10/01/21 09:11 0.5 mg ONETIME ONE Administration Metoclopramide HCl 10 mg 10/01/21 09:10 10/01/21 09:31 Metoclopramide 10 Mg/2 Ml Sdv IVPUSH 10/01/21 09:11 10 mg ONETIME ONE Administration - Radiology Interpretation Free Text/Narrative:: 61-year-old male presents to the ED with acute onset of nausea followed by vom iting starting around 2000 hrs. last night. Abdominal cramping pain associate with development of diarrhea stools earlier this morning. No blood in either emesis or diarrhea. He has a history of this being an intermittent problem. He presents to the ED hoping to gain control of nausea vomiting and abdominal pain and prevent dehydration. Plan routine labs will be obtained. He will be given D5 normal saline at open. Reglan 10 mg IV with Dilaudid 0.5 mg IV. - Re-Assessments/Exams Free Text/Narrative Re-Assessment/Exam: 10/01/21 11:11 White count is normal at 8.36. The auto differential reveals 74% neutrophils no bands cells. Hemoglobin is 17.3 with hematocrit of 49.8 suggesting mild hemoconcentration. Platelet count 269,000. Sodium 140 with potassium of 4.5. Chloride 104 the bicarb of 22. Anion gap is elevated at 18.5. BUN is 15 with a creatinine 1.0 and a GFR greater than 60. Glucose is 124. Calcium is 8.4. Bilirubin 0.5 AST is 39 with an ALT of 69 minimally elevated. Alkaline phosphatase is 65. C-reactive protein less than 0.2 total protein 7.0 with an albumin fraction of 3.8 10/01/21 11:12: Patient reports he is feeling much better. No further nausea and no further diarrhea while in the ED. He will be discharged home on clear fluid diet and nondairy diet till stools are formed back up. Prescription written for Zofran 4 mg under the tongue every 4-6 hours as needed for relief of nausea or vomiting. He has found these relatively ineffectual in the past. I therefore did write a prescription for Reglan 10 mg tabs to be taken every 6 hours by mouth if he is not vomiting. May use Bentyl 20 mg every 6 hours as needed for relief of abdominal cramping pain. He will follow up if he continues to have nausea or vomiting over the next 24 hours. Diagnosis is viral gastroenteritis Departure - Departure Time of Disposition: 11:15 Disposition: Home, Self-Care 01 Condition: Fair Clinical Impression: Gastroenteritis, Gastroenteritis Nausea and vomiting Qualifiers: Vomiting type: unspecified Qualified Code(s): R11.2 - Nausea with vomiting, unspecified - Discharge Information *PRESCRIPTION DRUG MONITORING PROGRAM REVIEWED*: Not Applicable *COPY OF PRESCRIPTION DRUG MONITORING REPORT IN PATIENT MARK: Not Applicable Prescriptions: Dicyclomine [Bentyl] 20 mg PO Q6H PRN #8 tablet PRN Reason: Abdominal cramps/diarrhea Metoclopramide HCl [Reglan] 10 mg PO Q6H PRN #6 tablet PRN Reason: Nausea relief Ondansetron [Zofran] 4 mg BUCCAL Q6H PRN #10 tab PRN Reason: nausea or vomiting Instructions: Viral Gastroenteritis, Adult, [id number] Referrals: Sparkle Schmidt MD [Primary Care Provider] - Forms: ED Department Discharge Additional Instructions: Evaluation in the emergency room today in regards to development of acute onset of nausea followed by vomiting throughout the night and then development of lower abdominal cramping pain and diarrhea this morning. Similar events in the past. No real history to suggest food poisoning or bad food intake recently. Lab test did reveal mild dehydration. You were treated with a liter of normal saline while in the emergency room. You are given medication Reglan 10 mg IV with Dilaudid 0.5 mg to relieve nausea vomiting and abdominal cramping pain. At home suggest clear fluids such as water. All juices except apple juice or grape juice are okay. No dairy products until stools are formed back up. Suggest primarily Gatorade or Powerade 5 to 6 ounces sipped per hour today to provide rehydration. Once hungry try soda crackers followed by jam on white bread. This can be followed by soup such as chicken noodle or turkey rice tonight. May use Zofran 4 mg under the tongue every 4-6 hours necessary for relief of nausea or vomiting. If the Zofran is ineffectual and you are not vomiting you can try Reglan 10 mg tablet orally which takes closer to an hour to work. Bentyl 20 mg can be taken every 6 hours as needed for relief of lower abdominal cramping pain and will relieve diarrhea mildly. Return to medical care if vomiting persists over the next 24 hours Sepsis Event Note (ED) - Evaluation Sepsis Screening Result: No Definite Risk - Focused Exam Vital Signs: Vital Signs Temp Pulse Resp BP Pulse Ox 10/01/21 08:53 36.2 C 87 16 133/97 H 94 L - My Orders Last 24 Hours: My Active Orders 10/01/21 09:15 Dextrose 5%-0.9% NaCl [Dextrose 5%-Normal Saline] 1,000 ml IV ASDIRECTED - Assessment/Plan Last 24 Hours: My Active Orders 10/01/21 09:15 Dextrose 5%-0.9% NaCl [Dextrose 5%-Normal Saline] 1,000 ml IV ASDIRECTED
[2021-10-01] MEDS ORDERED: Metoclopramide 10 MG/2 ML SDV IVPUSH ONE (09:10)
[2021-10-01] MEDS ORDERED: HYDROmorphone 0.5 MG/0.5 ML Syringe IVPUSH ONE (09:10)
[2021-10-01] MEDS ORDERED: Dextrose 5%-0.9% NaCl 1,000 ML IV SCH (09:15)
== END 2021-10-01 11:30 | disposition home or self-care (01) ==
LOC: JD.ED 08:41
DX: K52.9 Noninfective gastroenteritis and colitis, unspecified (principal); R11.2 Nausea with vomiting, unspecified; E78.00 Pure hypercholesterolemia, unspecified; I10 Essential (primary) hypertension; K21.9 Gastro-esophageal reflux disease without esophagitis; E66.9 Obesity, unspecified; Z68.39 Body mass index [BMI] 39.0-39.9, adult; Z88.0 Allergy status to penicillin; Z79.899 Other long term (current) drug therapy
CPT/HCPCS: 36415; 80053; 85007; 85027; 86140; 96374; 96375; 99284; J1170; J2765; J7042

== ENCOUNTER 2021-10-08 04:12 | Emergency (ER) | payer BC ==
[2021-10-08] MEDS ORDERED: Metoclopramide 10 MG/2 ML SDV IVPUSH ONE ×2 (04:40→06:26)
[2021-10-08] MEDS ORDERED: Lactated Ringers 1,000 ML IV ONE (04:40)
--- NOTE | 2021-10-08 04:40 | EDM.PDOC ---
ED HPI GENERAL MEDICAL PROBLEM - General Chief Complaint: Gastrointestinal Problem Stated Complaint: NAUSEA/VOMITING Time Seen by Provider: 10/08/21 04:32 - History of Present Illness INITIAL COMMENTS - FREE TEXT/NARRATIVE: 61-year-old male presents the emergency room with abdominal pain nausea and vomiting. Starting around 11:00 this evening patient developed upper abdominal pain with associated nausea and vomiting. The patient had an episode like this roughly a week ago. Patient has had a couple episodes yearly for the last couple years. He has been evaluated at the [facility] for this because this not identified. According to the patient and his this is the worst episode he thinks he has ever had. Does not seem to be associated with fevers chills he denies any chest pain chest pressure breathing difficulties or shortness of breath Patient has a history of hypertension hyperlipidemia and sleep apnea asthma he is a prediabetic and has rheumatoid arthritis Abdominal Pain Score (Numeric/FACES): 8 - Related Data Allergies Allergy/AdvReac Type Severity Reaction Status Date / Time Penicillins Allergy Rash Verified 10/08/21 04:21 Home Meds: Home Meds Albuterol Sulfate [Proair Hfa] 1 puff INH ASDIRECTED PRN 04/27/16 [History] Lisinopril 20 mg PO DAILY 04/27/16 [History] Rosuvastatin [Crestor] 5 mg PO DAILY 11/19/18 [History] Folic Acid 4 mg PO DAILY 03/24/21 [History] Hydroxychloroquine [Plaquenil] 400 mg PO ASDIRECTED 03/24/21 [History] Methotrexate Sodium/PF [Methotrexate 25 mg/ml Vial] 25 mg IM WEEKLY 03/24/21 [History] Pregabalin 200 mg PO BID 03/24/21 [History] sulfaSALAzine [Sulfazine] 500 mg PO BID 03/24/21 [History] Dicyclomine [Bentyl] 20 mg PO Q6H PRN #8 tablet 10/01/21 [Rx] Metoclopramide HCl [Reglan] 10 mg PO Q6H PRN #6 tablet 10/01/21 [Rx] Ondansetron [Zofran] 4 mg BUCCAL Q6H PRN #10 tab 10/01/21 [Rx] Hydrocodone/Acetaminophen [HYDROcodone-Acetaminophen 7.5-325 MG] 1 - 2 each PO Q6H PRN #20 tablet 10/08/21 [Rx] Ondansetron [Zofran Odt] 8 mg PO Q6H PRN #15 tab.rapdis 10/08/21 [Rx] Past Medical History HEENT History: Reports: Impaired Vision Other HEENT History: wears corrective lenses, dry eyes Cardiovascular History: Reports: High Cholesterol, Hypertension Other Cardiovascular History: elevated triglycerides Respiratory History: Reports: Asthma, Sleep Apnea Gastrointestinal History: Reports: Colon Polyp, Gastritis, GERD, Other (See Below) Other Gastrointestinal History: Past history of anal fissure. 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 Musculoskeletal History: Reports: Back Pain, Chronic, Osteoarthritis, RA, Other (See Below) Other Musculoskeletal History: right suprapinatus tendinitis, low back pain, left foot/ankle pain, right shoulder impingment, bilateral low back pain, left wrist pain, left arm fracture, bilateral foot surgery Neurological History: Reports: Head Trauma, Neuropathy, Peripheral Psychiatric History: Reports: Other (See Below) Other Psychiatric History: fatigue Endocrine/Metabolic History: Reports: Obesity/BMI 30+, Other (See Below) Other Endocrine/Metabolic History: prediabetes Hematologic History: Reports: None Immunologic History: Reports: None Oncologic (Cancer) History: Reports: None Dermatologic History: Reports: None - Infectious Disease History Infectious Disease History: Reports: Influenza, Mononucleosis, Novel Coronavirus, Other (See Below) Other Infectious Disease History: typhoid - Past Surgical History Head Surgeries/Procedures: Reports: Other (See Below) HEENT Surgical History: Reports: Oral Surgery, Other (See Below) Other HEENT Surgeries/Procedures: facial surgery-reconstruction Cardiovascular Surgical History: Reports: None Respiratory Surgical History: Reports: None GI Surgical History: Reports: Colonoscopy, EGD, Hernia, Inguinal, Hernia Repair/Other, Other (See Below) Other GI Surgeries/Procedures: colon surgery Male Surgical History: Reports: None Endocrine Surgical History: Reports: None Neurological Surgical History: Reports: None Musculoskeletal Surgical History: Reports: ORIF, Other (See Below) Other Musculoskeletal Surgeries/Procedures:: back nerve sx, plantar fasciatis, left broken arm, broken fingers and toes Oncologic Surgical History: Reports: None Dermatological Surgical History: Reports: None Social & Family History - Family History Family Medical History: No Pertinent Family History Neurological: Reports: Alzheimers Disease, CVA, Dementia Other Neurological Family History: mom and dad - Tobacco Use Tobacco Use Status *Q: Current Status Unknown - Caffeine Use Caffeine Use: Reports: Coffee - Living Situation & Occupation Living situation: Reports: , with Spouse 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, [employer]) ED ROS GENERAL - Review of Systems Review Of Systems: See Below Constitutional: Reports: No Symptoms HEENT: Reports: No Symptoms Respiratory: Reports: No Symptoms Cardiovascular: Reports: No Symptoms GI/Abdominal: Reports: Abdominal Pain, Diarrhea (Usually has diarrhea associated with episodes but not yet with this episode.), Nausea, Vomiting : Reports: No Symptoms Musculoskeletal: Reports: No Symptoms Neurological: Reports: No Symptoms ED EXAM, GENERAL - Physical Exam Exam: See Below Exam Limited By: No Limitations General Appearance: Alert, No Apparent Distress, Obese Respiratory/Chest: No Respiratory Distress, Lungs Clear, Normal Breath Sounds Cardiovascular: Regular Rate, Rhythm, No Edema, No Murmur GI/Abdominal: Normal Bowel Sounds, Soft, Tender (Significant upper abdominal discomfort) Back Exam: Normal Inspection. No: CVA Tenderness (L), CVA Tenderness (R) Neurological: Alert, Oriented, Normal Cognition #1 Interpretation EKG Date: 10/08/21 Rhythm: NSR [place]: Normal P-Wave: Present QRS: Other (Borderline decreased voltage limb leads) ST-T: Normal QT: Normal Comparison: Change From Previous EKG (Lower voltage in the limb leads more noticeable than on 09/29/2017 otherwise only changes associated with lead placement) EKG Interpretation Comments: Borderline EKG Course - Vital Signs Last Recorded V/S: Last Vital Signs Temp 36.0 C L 10/08/21 04:21 Pulse 88 10/08/21 04:21 Resp 15 10/08/21 04:21 BP 140/102 H 10/08/21 04:21 Pulse Ox 97 10/08/21 04:21 - Orders/Labs/Meds Orders: Active Orders 24 hr Category Date Time Status Abdomen Pelvis w Cont [CT] Stat Exams 10/08/21 06:01 Taken Labs: Laboratory Tests 10/08/21 10/08/21 10/08/21 Range/Units 04:40 04:40 05:55 WBC 10.30 H (4.23-9.07) K/mm3 RBC 5.68 (4.63-6.08) M/mm3 Hgb 18.1 H (13.7-17.5) gm/dl Hct 53.3 H (40.1-51.0) % MCV 93.8 H (79.0-92.2) fl MCH 31.9 (25.7-32.2) pg MCHC 34.0 (32.2-35.5) g/dl RDW Std Deviation 50.2 H (35.1-43.9) fL Plt Count 271 (163-337) K/mm3 MPV 9.3 L (9.4-12.3) fl Neut % (Auto) 81.6 H (34.0-67.9) % Lymph % (Auto) 11.7 L (21.8-53.1) % [place]oke % (Auto) 5.3 (5.3-12.2) % Eos % (Auto) 0.9 (0.8-7.0) Baso % (Auto) 0.2 (0.1-1.2) % Neut # (Auto) 8.41 H (1.78-5.38) K/mm3 Lymph # (Auto) 1.20 L (1.32-3.57) K/mm3 [place] # (Auto) 0.55 (0.30-0.82) K/mm3 Eos # (Auto) 0.09 (0.04-0.54) K/mm3 Baso # (Auto) 0.02 (0.01-0.08) K/mm3 Sodium 140 (136-145) mEq/L Potassium 4.4 (3.5-5.1) mEq/L Chloride 103 (98-107) mEq/L Carbon Dioxide 24 (21-32) mEq/L Anion Gap 17.4 H (5-15) BUN 19 H (7-18) mg/dL Creatinine 1.2 (0.7-1.3) mg/dL Est Cr Clr Drug Dosing 71.85 mL/min Estimated GFR (MDRD) > 60 (>60) mL/min BUN/Creatinine Ratio 15.8 (14-18) Glucose 181 H (70-99) mg/dL Calcium 9.5 (8.5-10.1) mg/dL Total Bilirubin 0.6 (0.2-1.0) mg/dL AST 28 (15-37) U/L ALT 55 (16-63) U/L Alkaline Phosphatase 66 (46-116) U/L Troponin I < 0.017 (0.00-0.056) ng/mL Total Protein 7.8 (6.4-8.2) g/dl Albumin 4.2 (3.4-5.0) g/dl Globulin 3.6 gm/dL Albumin/Globulin Ratio 1.2 (1-2) Lipase 385 (73-393) U/L Meds: Medications Discontinued Medications Generic Name Dose Route Start Last Admin Trade Name Sarahi PRN Reason Stop Dose Admin Hydromorphone HCl 0.5 mg 10/08/21 05:27 10/08/21 05:32 Hydromorphone 0.5 Mg/0.5 Ml Syringe IVPUSH 10/08/21 05:28 0.5 mg ONETIME ONE Administration Hydromorphone HCl 0.5 mg 10/08/21 05:37 10/08/21 05:40 Hydromorphone 0.5 Mg/0.5 Ml Syringe IVPUSH 10/08/21 05:38 0.5 mg ONETIME ONE Administration Lactated Ringer's 1,000 mls @ 999 mls/hr 10/08/21 04:40 10/08/21 04:58 Ringers, Lactated IV 10/08/21 05:40 999 mls/hr .BOLUS ONE Administration Metoclopramide HCl 5 mg 10/08/21 04:40 10/08/21 04:58 Metoclopramide 10 Mg/2 Ml Sdv IVPUSH 10/08/21 04:41 5 mg ONETIME ONE Administration Metoclopramide HCl 5 mg 10/08/21 06:26 10/08/21 06:37 Metoclopramide 10 Mg/2 Ml Sdv IVPUSH 10/08/21 06:27 5 mg ONETIME ONE Administration - Re-Assessments/Exams Free Text/Narrative Re-Assessment/Exam: 10/08/21 06:03 The abdominal pain is subsiding somewhat after a milligram of Dilaudid initially received 5 mg of Reglan and this is starting to help. The patient thinks this is the worst episode he has ever had. And is convinced something is broken inside we will go ahead and check a abdominal pelvic CT. labs nondiagnostic WBC 10.3 anion gap 17.4 BUN 19 creatinine 1.2 glucose 181 otherwise normal. 01/06/22 07:55 CT evaluation interestingly showed some jejunal enteritis. This is highly unlikely to be infectious at this location with no history of major colon surgery and is probably inflammatory. Patient has had a lot of problems with abdominal pain that has been figured out in the past perhaps further evaluation with a architectural design lecturer would be beneficial. Situation discussed with the patient and . Departure - Departure Time of Disposition: 07:57 Disposition: Home, Self-Care 01 Clinical Impression: Abdominal pain, Regional enteritis of jejunum - Discharge Information Prescriptions: Hydrocodone/Acetaminophen [HYDROcodone-Acetaminophen 7.5-325 MG] 1 - 2 each PO Q6H PRN #20 tablet PRN Reason: Abdominal Pain Ondansetron [Zofran Odt] 8 mg PO Q6H PRN #15 tab.rapdis PRN Reason: Nausea/Vomiting Referrals: Sparkle Schmidt MD [Primary Care Provider] - Forms: ED Department Discharge Additional Instructions: Return to the emergency room with any questions problems or worsening symptoms. I sent electronic prescription to the clinic pharmacy for Zofran 8 mg take 1 every 6 hours. This is larger than the 4 mg tablets you have been using and should be more effective. I sent an electronic prescription to the clinic pharmacy for hydrocodone 7.5/325 1 or 2 every 6 hours as needed for pain. Allow 12 hours after using this medication before driving or returning to work. Interestingly your CAT scan showed inflammation in your jejunum which is the midportion of your small intestine given you have had no major colon surgeries and your ileocecal valve is intact this is highly unlikely to be bacterial and since it involves just one portion is unlikely to be viral however inflammatory condition could cause this. Discuss with your regular physician getting into see a architectural design lecturer for further work-up for this but this could be causing this intermittent abdominal pain the you been having. If constipation is an issue use MiraLAX on a regular basis you may also use magnesium oxide 400 mg daily. Sepsis Event Note (ED) - Evaluation Sepsis Screening Result: No Definite Risk - Focused Exam Vital Signs: Vital Signs Temp Pulse Resp BP Pulse Ox 10/08/21 04:21 36.0 C L 88 15 140/102 H 97 - My Orders Last 24 Hours: My Active Orders 10/08/21 06:01 Abdomen Pelvis w Cont [CT] Stat - Assessment/Plan Last 24 Hours: My Active Orders 10/08/21 06:01 Abdomen Pelvis w Cont [CT] Stat
[2021-10-08] MEDS ORDERED: HYDROmorphone 0.5 MG/0.5 ML Syringe IVPUSH ONE ×2 (05:27→05:37)
[2021-10-08] MEDS ORDERED: Ondansetron 4 MG Tab.DIS PO ONE (08:53)
--- NOTE | 2021-10-08 09:21 | CT ---
EXAM: CT ABDOMEN PELVIS WITH CONTRAST LOCATION: [facility] [employer] DATE/TIME: 10/08/2021 6:29 AM INDICATION: Upper abdominal pain, nausea and vomiting COMPARISON: None. TECHNIQUE: CT scan of the abdomen and pelvis was performed following injection of IV contrast. Multiplanar reformats were obtained. Dose reduction techniques were used. CONTRAST: isovue 300 100ml FINDINGS: LOWER CHEST: Trace dependent atelectasis. HEPATOBILIARY: Hepatic steatosis. PANCREAS: Normal. SPLEEN: Normal. ADRENAL GLANDS: Normal. KIDNEYS/BLADDER: Cortical scarring right kidney. No hydronephrosis. Rotational anomaly of the left kidney. BOWEL: Mild wall thickening and mesenteric edema involving the jejunum in the left upper quadrant is consistent with enteritis, image 49:2 is demonstrative. No obstruction. Colonic diverticulosis. Normal appendix. LYMPH NODES: A few subcentimeter mesenteric lymph nodes which are likely reactive. No lymphadenopathy. VASCULATURE: Mild atherosclerosis. PELVIC ORGANS: Normal. MUSCULOSKELETAL: Small fat-containing inguinal hernias. Degenerative changes of the spine and hips. IMPRESSION: 1. Jejunal enteritis which is most likely infectious or inflammatory. 2. Hepatic steatosis. SIGNED BY: Jaylen Muhammad MD 10/08/2021 8:11 AM [facility]
[2021-10-08 09:45] VITALS: BP 115/83; PULSE 100
== END 2021-10-08 09:25 | disposition home or self-care (01) ==
LOC: JD.ED 04:12
DX: K50.00 Crohn's disease of small intestine without complications (principal); I10 Essential (primary) hypertension; E78.00 Pure hypercholesterolemia, unspecified; E66.9 Obesity, unspecified; Z88.0 Allergy status to penicillin; Z68.39 Body mass index [BMI] 39.0-39.9, adult
CPT/HCPCS: 36415; 74177; 80053; 83690; 84484; 85025; 93005; 96374; 96375; 96376; 99284; A9270; J1170; J2765; J7120; 93010; 99285

== ENCOUNTER 2021-10-17 09:26 | Emergency (ER) | payer BC ==
[2021-10-17 09:45] VITALS: BP 129/89; PULSE 86
[2021-10-17 11:16] LABS: CORONAVIRUS COVID-19 NAA NEGATIVE (NEGATIVE)
== END 2021-10-17 11:44 | disposition home or self-care (01) ==
LOC: JD.ED 09:26
DX: M79.2 Neuralgia and neuritis, unspecified (principal); J06.9 Acute upper respiratory infection, unspecified; E78.00 Pure hypercholesterolemia, unspecified; I10 Essential (primary) hypertension; J45.909 Unspecified asthma, uncomplicated; E66.9 Obesity, unspecified; Z68.38 Body mass index [BMI] 38.0-38.9, adult; Z88.0 Allergy status to penicillin; Z79.899 Other long term (current) drug therapy; Z20.822 Contact with and (suspected) exposure to COVID-19
CPT/HCPCS: 0240U; 36415; 71045; 85025; 85652; 86140; 99284

== ENCOUNTER 2022-01-06 06:49 | Emergency (ER) | payer BC, OTHER ==
[2022-01-06] MEDS ORDERED: Sodium Chloride 0.9% 1,000 ML IV STA (07:31)
[2022-01-06] MEDS ORDERED: Metoclopramide 10 MG/2 ML SDV IVPUSH ONE (07:31)
[2022-01-06] MEDS ORDERED: Sodium Chloride 0.9% 10 ML Syringe FLUSH PRN (07:31)
[2022-01-06] MEDS ORDERED: HYDROmorphone 0.5 MG/0.5 ML Syringe IVPUSH ONE (07:32)
[2022-01-06 09:20] VITALS: BP 132/75; PULSE 66
== END 2022-01-06 09:20 | disposition home or self-care (01) ==
LOC: JD.ED 06:49
DX: R10.32 Left lower quadrant pain (principal); R11.2 Nausea with vomiting, unspecified; R19.7 Diarrhea, unspecified; E78.00 Pure hypercholesterolemia, unspecified; I10 Essential (primary) hypertension; E66.9 Obesity, unspecified; Z68.38 Body mass index [BMI] 38.0-38.9, adult; Z88.0 Allergy status to penicillin; Z79.899 Other long term (current) drug therapy
CPT/HCPCS: 36415; 80053; 83690; 85025; 96374; 96375; 99283; 99284-25; J1170; J2765; J3490; J7030